=== PATIENT | female | born 1930 | race Caucasian/White ===

== ENCOUNTER 2018-08-01 21:26 | Observation (INO) ==
[2018-08-01 22:03] LABS: Basophils # 0.1 K/mm3 (0-0.2); Basophils % 0.5 % (0.1-2.0); Eosinophils # 0.2 K/mm3 (0.0-0.4); Eosinophils % 1.9 % (0.1-12.0); Hematocrit 39.1 % (37.0-47.0); Hemoglobin 13.1 g/dL (12.2-16.2); Lymphocytes # 1.5 K/mm3 (0.7-4.5); Lymphocytes % 14.9 % (10-50); Mean Corpuscular HGB Conc 33.5 g/dL (31.8-35.4); Mean Corpuscular Hemoglobin 30.1 pg (27.0-31.2); Mean Corpuscular Volume 89.8 fl (81-99); Mean Platelet Volume 6.3 fl (7.4-10.4); Monocytes # 0.5 K/mm3 (0.1-1.0); Monocytes % 4.5 % (1.7-9.3); Neutrophils # 7.8 K/mm3 (1.8-7.8); Neutrophils % 78.3 % (37.0-80.0); Platelet Count 273 K/mm3 (142-424); Red Blood Count 4.35 M/mm3 (4.20-5.40); Red Cell Distribution Width 14.7 % (11.5-17.5)
[2018-08-01 22:11] LABS: Microscopic, Urine URINE MICROSCOPIC (MICROSCOPIC)
[2018-08-01 22:18] LABS: Appearance,Urine CLEAR (Clear); Bilirubin,Urine Negative (Negative); Blood, Urine Negative (Negative); Color,Urine YELLOW (Yellow); Glucose,Urine (UA) Negative (Negative); Ketones,Urine Negative (Negative); Leukocyte Esterase,Urine Negative (Negative); Protein,Urine Negative (Negative); Specific Gravity, Urine <= 1.005 (1.005-1.030); Urobilinogen,Urine 0.2 EU/dl (0.2)
[2018-08-01 22:18] LABS: Alanine Aminotransferase 28 U/L (12-78); Albumin/Globulin Ratio 0.9 (1.1-1.8); Alkaline Phosphatase 88 U/L (46-116); Anion Gap 13.4 mEq/L (5-15); Aspartate Amino Transferase 16 U/L (15-37); Bilirubin,Total 0.7 mg/dL (0.2-1.0); Blood Urea Nitrogen 16 mg/dL (7-18); Calcium 8.6 mg/dL (8.5-10.1); Carbon Dioxide 23 mmol/L (21.0-32.0); Chloride 89 mmol/L (98-107); Globulin 3.3 gm/dl (1.3-3.2); Glucose 161 mg/dL (74-106); Potassium 4.4 mmoL/L (3.5-5.1); Sodium 121 mmol/L (136-145); Total Protein,Serum 6.3 gm/dL (6.4-8.2)
[2018-08-01 22:34] LABS: Bacteria,Urine Trace /lpf; Squamous Epithelial Cell,Urine Occasional #/hpf (0-5); WBC,Urine Occasional #/hpf (0-3)
--- NOTE | 2018-08-01 23:18 | Emergency Department Note ---
ED Disposition Clinical Impression: Acute delirium, Renal insufficiency, Hyponatremia A-fib Qualifiers: Atrial fibrillation type: chronic Qualified Code(s): I48.2 - Chronic atrial fibrillation Disposition: Admitted as Observation Condition on Discharge: Fair Instructions: DI for Altered Mental Status Referrals: Carlos Lopez MD [Primary Care Provider] - - Critical Care Critical Care Time: No Attestation: On 08/01/18, the high probability of a clinically significant, sudden or life threatening deterioration of the following system(s) required my full and direct attention, intervention and personal management. The time I documented below is in addition to time spent performing reported procedures but includes the following listed in this critical care notation. Medical Decision Making - Medical Records Medical records reviewed: Yes: I reviewed the patient's medical records. - Benny Inquiry Pt receiving controlled substance: No Vital Signs: 08/01/18 21:39 08/01/18 22:08 08/01/18 22:56 Temperature 98.9 F 99.7 F H Temperature Source Rectal Rectal Pulse Rate [Right Brachial] 87 84 Respiratory Rate 15 Blood Pressure [Right Arm] 97/57 L 100/53 L Blood Pressure Mean [Right Arm] 70 68 02 Sat by Pulse Oximetry 98 98 Oxygen Delivery Method Room Air 08/01/18 23:30 Temperature 98.9 F Temperature Source Oral Pulse Rate [Right Brachial] 101 H Respiratory Rate Blood Pressure [Right Arm] 169/67 H Blood Pressure Mean [Right Arm] 101 02 Sat by Pulse Oximetry 99 Oxygen Delivery Method - Lab Data Lab results reviewed: Yes: I reviewed the patient's lab results. Lab Results 08/01/18 21:48: WBC 10.0, RBC 4.35, Hgb 13.1, Hct 39.1, MCV 89.8, MCH 30.1, MCHC 33.5, RDW 14.7, Plt Count 273, MPV 6.3 L, Neut % (Auto) 78.3, Lymph % (Auto) 14.9, [place] % (Auto) 4.5, Eos % (Auto) 1.9, Baso % (Auto) 0.5, Neut # (Auto) 7.8, Lymph # (Auto) 1.5, [place] # (Auto) 0.5, Eos # (Auto) 0.2, Baso # (Auto) 0.1 08/01/18 21:48: Sodium 121 L, Potassium 4.4, Chloride 89 L, Carbon Dioxide 23, Anion Gap 13.4, BUN 16, Creatinine 1.19 H, Estimated Creat Clear 34, Estimated GFR 43 L, Est GFR ( Amer) 52 L, Glucose 161 H, Calcium 8.6, Total Bilirubin 0.7, AST 16, ALT 28, Alkaline Phosphatase 88, Troponin I < 0.02, Total Protein 6.3 L, Albumin 3.0 L, Globulin 3.3 H, Albumin/Globulin Ratio 0.9 L 08/01/18 21:48: Lactate 3.0 H 08/01/18 21:48: ESR 22 08/01/18 21:48: C-Reactive Protein 4.9 H 08/01/18 22:07: Urine Color Yellow, Urine Appearance Clear, Urine pH 7.0, Ur Specific [place] <= 1.005, Urine Protein Negative, Urine Glucose (UA) Negative, Urine Ketones Negative, Urine Blood Negative, Urine Nitrate Negative, Urine Bilirubin Negative, Urine Urobilinogen 0.2, Ur Leukocyte Esterase Negative, Urine WBC Occasional, Ur Squamous Epith Cells Occasional, Urine Bacteria Trace Result diagrams: 08/01/18 21:48 08/01/18 21:48 Orders (Tests/Meds): ED MEDICATIONS Generic Name Dose Route Start Last Admin Trade Name Freq PRN Reason Stop Dose Admin Sodium Chloride 1,000 mls @ 999 mls/hr 08/01/18 22:15 08/01/18 22:11 Sod Chlor 0.9% 1000ml Bag IV 08/01/18 23:15 999 mls/hr .Q1H1M GAURANG Administration Discontinued Medications Generic Name Dose Route Start Last Admin Trade Name Freq PRN Reason Stop Dose Admin Ketorolac Tromethamine 30 mg 08/01/18 23:40 08/01/18 23:52 Toradol 30mg/Ml Vial IV 08/01/18 23:41 30 mg ONCE ONE Administration ORDERS Category Date Time Status CT head/brain wo con Stat Cat Scan 08/01/18 21:49 Taken XR chest portable Stat Exams 08/01/18 21:49 Taken UDS [Drug Screen,Urine] Stat Lab 08/01/18 22:07 Received Blood Culture Stat Micro 08/01/18 21:48 Received ECG Request by /Nse Stat Y 08/01/18 21:49 Ordered - Radiology Data #1 Image(s): Chest Image Reviewed: Yes I reviewed the patient's radiology image Preliminary Findings: Abnormal (cm) - CT Data CT Scan: Head Time Received: 00:[address] Reviewed: Yes: I have viewed the radiologist's interpretation Preliminary Findings: Abnormal (see report ) - ECG Data Tracing #1 Arrhythmias present: afib Ischemic changes: non-specific ST-T wave changes ECG compared to prior tracings: there are no significant changes - Physician Consults Physician Consulted: roxane Reason -: Admission Altered Mental Status HPI - General Chief Complaint: Altered Mental Status Stated Complaint: ams Time Seen by Provider: 08/01/18 22:00 Mode of Arrival: Wheelchair Source of Information: Patient, Relative, Medical Record Limitations: No Limitations Description of Symptoms (Recalled from ER Triage Doc. by RN): Pt brought in by family for mental status changes lasting about a week. Reports severe weakness and emotional outburts. Salon Professional equal bilaterally, no drift on extremities, no facial droop noted. Pt does not follow normal conversation, and could not stand to get in the bed, had to be lifted by staff. - History of Present Illness HPI narrative: pt with progressive change in mental status over the last few days - no fever or rash and no recent sig trauma - no vomiting or diarrhea MD complaint: altered mental status Onset (ago): day(s) Timing confirmed by: family member Severity: moderate Consistency of symptoms: getting worse Context: unknown Associated symptoms: denies other symptoms - Related Data Home Medications Medication Instructions Recorded Confirmed acetaminophen ER 650 mg 650 mg PO Q12H PRN 07/07/18 08/01/18 tablet,extended release amlodipine 5 mg tablet 5 mg PO DAILY 07/07/18 08/01/18 aspirin 81 mg tablet,delayed 81 mg PO DAILY 07/07/18 08/01/18 release cetirizine 10 mg tablet 5 mg PO DAILY PRN 07/07/18 08/01/18 clopidogrel 75 mg tablet 75 mg PO DAILY 07/07/18 08/01/18 fluoxetine 20 mg capsule 20 mg PO DAILY 07/07/18 08/01/18 irbesartan 150 mg tablet 150 mg PO DAILY 07/07/18 08/01/18 nebivolol 5 mg tablet 5 mg PO DAILY 07/07/18 08/01/18 omeprazole 40 mg capsule,delayed 40 mg PO DAILY 07/07/18 08/01/18 release rivaroxaban 15 mg tablet 15 mg PO QPM 07/07/18 08/01/18 spironolactone 25 mg tablet 25 mg PO DAILY 07/07/18 08/01/18 Allergies Allergy/AdvReac Type Severity Reaction Status Date / Time diphenhydramine Allergy Unknown Verified 07/20/18 14:36 [From BENADRYL] morphine [MORPHINE] Allergy Unknown Verified 07/20/18 14:36 [facility] History - Hepatitis A Screen Drug use history?: No High risk sexual behaviors?: No History of sexually transmitted infection?: No Currently employed?: No Childcare worker?: No Do you have indoor plumbing?: Yes Do you have electricity?: Yes Attestation statement:: This patient has been screened for Hepatitis A risk factors. I have reviewed the patient's past medical history: Yes Medical History: Reports:: Atrial Fibrillation, Congestive Heart Failure, Coronary Artery Disease, Gastroesophageal Reflux Disease(GERD), Hyperlipidemia, Hypertension, Palpitations Denies:: Cancer, Diabetes Mellitus Type 1, Diabetes Mellitus Type 2, MRSA Other Medical History: Reports: Arthritis Comment: Heart attack 2009. Laterality Cases: Left: Total Hip Replacement, Right: Breast Biopsy Other Surgeries: Yes: Cardiac Catheterization, Cardiac Surgery, Hernia Repair Amputation: No - Social History Smoking Status: Never smoker Alcohol Intake: never Occupational Status: retired Housing: house - Psychiatric History Expresses thoughts of harming self/others: None Suicide Plan Description: No Plan Family Hx:: No significant family history ROS Obtained: Yes All systems reviewed & no additional complaints - Constitutional Constitutional: Denies fever(s), Reports poor appetite - Eyes Eyes: Denies eye discharge - ENT Ears, Nose, Mouth, and Throat: Denies headache(s), Denies nasal congestion - Cardiovascular Cardiovascular: Denies chest pain, Denies dyspnea - Respiratory Respiratory: No cough - Gastrointestinal Gastrointestingal: Denies: abdominal pain, vomiting - Genitourinary Female Genitourinary: Denies hematuria - Musculoskeletal Musculoskeletal: Denies joint swelling - Integumentary/Breasts Skin/Breast: Denies rash - Neurologic Neurologic: Reports as per HPI, Reports confusion, Denies seizure-like activity Physical Exam - General General appearance: in no apparent distress, other (confused ) - Head Head exam: normocephalic - Eye Eye exam: Present: PERRL, EOMI. Absent: scleral icterus - ENT ENT exam: Present: mucous membranes dry - Neck Neck exam: Present: trachea midline. Absent: meningismus - Respiratory Respiratory exam: Present: normal lung sounds bilaterally. Absent: respiratory distress - Cardiovascular Cardiovascular exam: Present: regular rate, systolic murmur, +S4 - Abdominal Exam Abdominal exam: Present: soft - Extremities Exam Extremities exam: Present: other (moves all ext ) - Back Exam Back exam: Present: normal inspection - Neurological Exam Neurological exam: Present: CN II-XII intact, other (no posturing and no focal changes ) - Skin Skin exam: Absent: rash
[2018-08-02 00:10] LABS: Amphetamine/Metha Screen,Urine Negative ng/mL (<1000); Barbiturates Screen,Urine Negative ng/mL (<200); Benzodiazepines Screen,Urine Negative ng/mL (<200); Cannabinoid Screen,Urine Negative ng/mL (<50); Cocaine Screen,Urine Negative ng/mL (<300); Methadone Screen,Urine Negative ng/mL (<300); Opiate Screen,Urine Negative ng/mL (<300); Phencyclidine Screen,Urine Negative ng/mL (<25)
[2018-08-02 06:39] LABS: Basophils % 0.3 % (0.1-2.0); Eosinophils # 0.2 K/mm3 (0.0-0.4); Eosinophils % 2.1 % (0.1-12.0); Hematocrit 40.8 % (37.0-47.0); Hemoglobin 13.7 g/dL (12.2-16.2); Lymphocytes # 1.4 K/mm3 (0.7-4.5); Lymphocytes % 12.8 % (10-50); Mean Corpuscular HGB Conc 33.6 g/dL (31.8-35.4); Mean Corpuscular Volume 89.1 fl (81-99); Mean Platelet Volume 6.1 fl (7.4-10.4); Monocytes # 0.6 K/mm3 (0.1-1.0); Monocytes % 5.7 % (1.7-9.3); Neutrophils # 8.3 K/mm3 (1.8-7.8); Platelet Count 256 K/mm3 (142-424); Red Blood Count 4.58 M/mm3 (4.20-5.40); Red Cell Distribution Width 14.9 % (11.5-17.5); White Blood Count 10.5 K/mm3 (4.8-10.8)
[2018-08-02 06:50] LABS: Anion Gap 12.5 mEq/L (5-15); Calcium 8.7 mg/dL (8.5-10.1); Potassium 4.5 mmoL/L (3.5-5.1)
--- NOTE | 2018-08-02 07:26 | Pharmacy Consult Notes ---
[facility] VTE Monitoring - Patient Demographics Admission date: 08/02/18 Report Date: 08/02/18 Time: 07:26 Allergies/Adverse Reactions: Patient Allergies diphenhydramine [From BENADRYL] Allergy (Unknown, Verified 07/20/18 14:36) morphine [MORPHINE] Allergy (Unknown, Verified 07/20/18 14:36) Height: 1.52 m Weight: 61.518 kg Patient Problems: Current Active Problems (Updated 08/02/18 @ 00:08 by Rod Gomez MD) Renal insufficiency (Acute) Acute delirium (Acute) A-fib (Acute) Hyponatremia (Acute) - VTE Risk Labs: VTE Related Lab Results Hgb 13.7 g/dL (12.2-16.2) 08/02/18 06:11 Hct 40.8 % (37.0-47.0) 08/02/18 06:11 Plt Count 256 K/mm3 (142-424) 08/02/18 06:11 BUN 13 mg/dL (7-18) 08/02/18 06:11 Creatinine 0.98 mg/dL (0.55-1.02) 08/02/18 06:11 Estimated Creat Clear 40 mL/min (50-200) 08/02/18 06:11 Was VTE Risk Assessment Performed: Yes VTE Score: 4 VTE Risk Level: Low Risk Clinical Trial Participant: No - Prophylaxis VTE Prophylaxis Ordered?: Yes Types of VTE Prophylaxis: TEDS Knee High
--- NOTE | 2018-08-02 10:02 | History & Physical Report ---
*Admission Date: 08/02/18 <Neha Rizvi - 08/02/18 10:02> *Chief complaint: Altered mental status <Neha Rizvi - 08/02/18 10:02> *History of present illness: Ms Taveras is an 87-year-old female with a history of coronary artery disease, atrial fibrillation, hypertension, hyperlipidemia, depression, GERD, COPD, polymyalgia rheumatica, weakness, impaired mobility and ADLs, neuromuscular disease, and confusion, who was brought to [facility] emergency room by family for evaluation. Family describes worsening mental status over about the last week with severe weakness and emotional outburst. Patient is unable to give any history. Information obtained from nursing records. Family has not noted a fever or any significant trauma, vomiting, or diarrhea. With evaluation in the emergency room patient was found to be very confused. Filer Repairer were equal bilaterally with no drift and no facial droop noted. Patient did not follow normal conversation. She could not stand to get out of bed. Patient was found to be hyponatremic. Chest x-ray showed cardiomegaly. Urinalysis was negative. She was admitted for further evaluation and treatment for her acute delirium. At time of this exam patient is making repetitive statements and counts continuously. She does allow exam. Nursing notes indicate some agitation and attempts at hitting. Nursing at bedside throughout the night. I did visit with the patient later. Daughter was present. Patient was more calm and following our conversation. According to the nurse she was able to eat breakfast and swallowed without difficulty. Daughter states that she is to have a follow-up with an orthopedic surgeon in [facility] for possible aspiration of her left hip and further studies. She has had a CT already of the hip. Patient apparently has increasing pain of the left hip area with refusal to walk or stand at times. <Neha Rizvi - 08/02/18 13:38> [facility] History Medical History: Reports:: Atherosclerotic Heart Disease, Atrial Fibrillation, Congestive Heart Failure, Coronary Artery Disease, Gastroesophageal Reflux Disease(GERD), Hiatal Hernia, Hyperlipidemia, Hypertension, Palpitations Denies:: Cancer, Diabetes Mellitus Type 1, Diabetes Mellitus Type 2, MRSA <Neha Rizvi 08/02/18 10:28> *Have you ever received a pneumonia vaccine?: Yes <Katherine Rizvihy - 05/07/19 10:02> *Have you received a flu vaccine this season?: No <Neha Rizvi 08/02/18 10:02> Other Medical History: Reports: Arthritis, Cataracts (removed in 2016) <Neha Rizvi 08/02/18 10:02> Laterality Cases: Left: Total Hip Replacement, Right: Breast Biopsy <Neha Rizvi 08/02/18 10:28> Other Surgeries: Yes: Cardiac Catheterization, Cardiac Surgery, Coronary Stent, Hernia Repair <Neha Rizvi 08/02/18 10:28> Amputation: No <Neha Rizvi 08/02/18 10:02> - *Social History Educational Level: Completed GED/General Educational Development <Neha Rizvi 08/02/18 10:02> Smoking Status: Never smoker <Neha Rizvi 08/02/18 10:02> Alcohol Intake: never <Neha Rizvi 08/02/18 10:02> *Occupational Status:: retired <Neha Rizvi 08/02/18 10:02> Housing: house <Neha Rizvi 08/02/18 10:02> Household Members: children <Neha Rizvi 08/02/18 10:02> *Travel in the last 8 weeks: None <Neha Rizvi 08/02/18 10:02> - Psychiatric History Expresses thoughts of harming self/others: None <Neha Rizvi 08/02/18 10:02> Suicide Plan Description: No Plan <Neha Rizvi 08/02/18 10:02> Family Hx:: Coronary Artery Disease, Diabetes <Neha Rizvi 08/02/18 10:02> Review of Systems - Constitutional Denies fever(s) <Neha Rizvi 08/02/18 10:28> - *Cardiovascular Denies chest pain <Neha Rizvi 08/02/18 10:28> - *Respiratory Denies shortness of breath <Neha Rizvi 08/02/18 10:28> - *Gastrointestinal Denies change in stools, Denies nausea, Denies vomiting <Neha Rizvi 08/02/18 10:28> - *Musculoskeletal Reports muscle weakness (Progressive) <Neha Rizvi 08/02/18 10:28> - *Neurologic Reports behavioral changes, Reports confusion, Reports frequent falls, Denies headache(s), Denies seizure-like activity <Neha Rizvi - 08/02/18 10:28> Meds Home Medications Medication Instructions Recorded Confirmed Type acetaminophen ER 650 mg 650 mg PO Q12H PRN 07/07/18 08/02/18 History tablet,extended release amlodipine 5 mg tablet 5 mg PO DAILY 07/07/18 08/02/18 History aspirin 81 mg tablet,delayed 81 mg PO DAILY 07/07/18 08/02/18 History release clopidogrel 75 mg tablet 75 mg PO DAILY 07/07/18 08/02/18 History fluoxetine 20 mg capsule 20 mg PO DAILY 07/07/18 08/02/18 History irbesartan 150 mg tablet 150 mg PO DAILY 07/07/18 08/02/18 History nebivolol 5 mg tablet 5 mg PO DAILY 07/07/18 08/02/18 History omeprazole 40 mg capsule,delayed 40 mg PO DAILY 07/07/18 08/02/18 History release rivaroxaban 15 mg tablet 15 mg PO QPM 07/07/18 08/02/18 History Levocetirizine Dihydrochloride 5 mg PO DAILYP PRN 08/02/18 08/02/18 History [Xyzal] Spironolactone 25 mg PO BID 08/02/18 08/02/18 History predniSONE [Prednisone 20mg 20 mg PO DAILY 08/02/18 08/02/18 History Tab] <Carlos Lopez - 08/02/18 13:42> Allergies Allergy/AdvReac Type Severity Reaction Status Date / Time diphenhydramine Allergy Unknown Verified 07/20/18 14:36 [From BENADRYL] morphine [MORPHINE] Allergy Unknown Verified 07/20/18 14:36 <Carlos Lopez - 08/02/18 13:42> Exam Vital signs and Labs for Last 24 Hours: Temp Pulse Resp BP Pulse Ox 98.2 F 82 20 154/78 H 95 08/02/18 08:00 08/02/18 08:00 08/02/18 08:00 08/02/18 08:00 08/02/18 08:00 Laboratory Results - last 24 hr 08/01/18 21:48: WBC 10.0, RBC 4.35, Hgb 13.1, Hct 39.1, MCV 89.8, MCH 30.1, MCHC 33.5, RDW 14.7, Plt Count 273, MPV 6.3 L, Neut % (Auto) 78.3, Lymph % (Auto) 14.9, [place] % (Auto) 4.5, Eos % (Auto) 1.9, Baso % (Auto) 0.5, Neut # (Auto) 7.8, Lymph # (Auto) 1.5, [place] # (Auto) 0.5, Eos # (Auto) 0.2, Baso # (Auto) 0.1 08/01/18 21:48: Sodium 121 L, Potassium 4.4, Chloride 89 L, Carbon Dioxide 23, Anion Gap 13.4, BUN 16, Creatinine 1.19 H, Estimated Creat Clear 34, Estimated GFR 43 L, Est GFR ( Amer) 52 L, Glucose 161 H, Calcium 8.6, Total Bilirubin 0.7, AST 16, ALT 28, Alkaline Phosphatase 88, Troponin I < 0.02, Total Protein 6.3 L, Albumin 3.0 L, Globulin 3.3 H, Albumin/Globulin Ratio 0.9 L 08/01/18 21:48: Lactate 3.0 H 08/01/18 21:48: ESR 22 08/01/18 21:48: C-Reactive Protein 4.9 H 08/01/18 22:07: Urine Color Yellow, Urine Appearance Clear, Urine pH 7.0, Ur Specific L[place] <= 1.005, Urine Protein Negative, Urine Glucose (UA) Negative, Urine Ketones Negative, Urine Blood Negative, Urine Nitrate Negative, Urine Bilirubin Negative, Urine Urobilinogen 0.2, Ur Leukocyte Esterase Negative, Urine WBC Occasional, Ur Squamous Epith Cells Occasional, Urine Bacteria Trace 08/01/18 22:07: Urine Opiates Screen Negative, Urine Methadone Screen Negative, Ur Barbituates Screen Negative, Ur Phencyclidine Scrn Negative, Ur Amphetamines Screen Negative, U Benzodiazepines Scrn Negative, Urine Cocaine Screen Negative, U Marijuana (THC) Screen Negative 08/02/18 01:30: Lactate 1.4 08/02/18 03:10: Troponin I 0.02 08/02/18 06:11: WBC 10.5, RBC 4.58, Hgb 13.7, Hct 40.8, MCV 89.1, MCH 30.0, MCHC 33.6, RDW 14.9, Plt Count 256, MPV 6.1 L, Neut % (Auto) 79.0, Lymph % (Auto) 12.8, [place] % (Auto) 5.7, Eos % (Auto) 2.1, Baso % (Auto) 0.3, Neut # (Auto) 8.3 H, Lymph # (Auto) 1.4, Stone[place] # (Auto) 0.6, Eos # (Auto) 0.2, Baso # (Auto) 0.0 08/02/18 06:11: Sodium 127 L, Potassium 4.5, Chloride 95 L, Carbon Dioxide 24, Anion Gap 12.5, BUN 13, Creatinine 0.98, Estimated Creat Clear 40, Estimated GFR 54 L, Est GFR ( Amer) 65 D, Glucose 103 D, Calcium 8.7 08/02/18 06:11: Magnesium 1.6, Troponin I < 0.02 <Barbra Lopezian - 08/02/18 13:42> Temp Pulse Resp BP Pulse Ox 97.9 F 80 18 144/79 H 98 08/02/18 04:30 08/02/18 04:30 08/02/18 04:30 08/02/18 04:30 08/02/18 04:30 Laboratory Results - last 24 hr 08/01/18 21:48: WBC 10.0, RBC 4.35, Hgb 13.1, Hct 39.1, MCV 89.8, MCH 30.1, MCHC 33.5, RDW 14.7, Plt Count 273, MPV 6.3 L, Neut % (Auto) 78.3, Lymph % (Auto) 14.9, [place] % (Auto) 4.5, Eos % (Auto) 1.9, Baso % (Auto) 0.5, Neut # (Auto) 7.8, Lymph # (Auto) 1.5, [place] # (Auto) 0.5, Eos # (Auto) 0.2, Baso # (Auto) 0.1 08/01/18 21:48: Sodium 121 L, Potassium 4.4, Chloride 89 L, Carbon Dioxide 23, Anion Gap 13.4, BUN 16, Creatinine 1.19 H, Estimated Creat Clear 34, Estimated GFR 43 L, Est GFR ( Amer) 52 L, Glucose 161 H, Calcium 8.6, Total Bilirubin 0.7, AST 16, ALT 28, Alkaline Phosphatase 88, Troponin I < 0.02, Total Protein 6.3 L, Albumin 3.0 L, Globulin 3.3 H, Albumin/Globulin Ratio 0.9 L 08/01/18 21:48: Lactate 3.0 H 08/01/18 21:48: ESR 22 08/01/18 21:48: C-Reactive Protein 4.9 H 08/01/18 22:07: Urine Color Yellow, Urine Appearance Clear, Urine pH 7.0, Ur Specific [place] <= 1.005, Urine Protein Negative, Urine Glucose (UA) Negative, Urine Ketones Negative, Urine Blood Negative, Urine Nitrate Negative, Urine Bilirubin Negative, Urine Urobilinogen 0.2, Ur Leukocyte Esterase Negative, Urine WBC Occasional, Ur Squamous Epith Cells Occasional, Urine Bacteria Trace 08/01/18 22:07: Urine Opiates Screen Negative, Urine Methadone Screen Negative, Ur Barbituates Screen Negative, Ur Phencyclidine Scrn Negative, Ur Amphetamines Screen Negative, U Benzodiazepines Scrn Negative, Urine Cocaine Screen Negative, U Marijuana (THC) Screen Negative 08/02/18 01:30: Lactate 1.4 08/02/18 03:10: Troponin I 0.02 08/02/18 06:11: WBC 10.5, RBC 4.58, Hgb 13.7, Hct 40.8, MCV 89.1, MCH 30.0, MCHC 33.6, RDW 14.9, Plt Count 256, MPV 6.1 L, Neut % (Auto) 79.0, Lymph % (Auto) 12 .8, [place] % (Auto) 5.7, Eos % (Auto) 2.1, Baso % (Auto) 0.3, Neut # (Auto) 8.3 H, Lymph # (Auto) 1.4, [place] # (Auto) 0.6, Eos # (Auto) 0.2, Baso # (Auto) 0.0 08/02/18 06:11: Sodium 127 L, Potassium 4.5, Chloride 95 L, Carbon Dioxide 24, Anion Gap 12.5, BUN 13, Creatinine 0.98, Estimated Creat Clear 40, Estimated GFR 54 L, Est GFR ( Amer) 65 D, Glucose 103 D, Calcium 8.7 08/02/18 06:11: Magnesium 1.6, Troponin I < 0.02 <Neha Rizvi 08/02/18 10:02> I & O for Last 24 hours: Intake & Output 07/30/18 07/31/18 08/01/18 08/02/18 23:59 23:59 23:59 23:59 Intake Total 307 / 307 Balance 307 / 307 Weight 135 lb 9.985 oz 135 lb 9.985 oz <Carlos Lopez - 08/02/18 13:42> Intake & Output 07/30/18 07/31/18 08/01/18 08/02/18 11:59 11:59 11:59 11:59 Intake Total 307 / 307 Balance 307 / 307 Weight 135 lb 9.985 oz <Neha Rizvi - 08/02/18 10:02> Radiology Reports for the Last 24 Hours: 08/01/2018 chest x-ray IMPRESSION: Cardiomegaly 08/01/[address] IMPRESSION: 1. No acute intracranial findings. 2. Atrophy with chronic ischemic gliotic change <Neha Rizvi 08/02/18 10:28> - Constitutional no acute distress <Neha Rizvi 08/02/18 10:28> Comments: Moves around in the bed almost continuously. Pointing and counting continuously. Will answer questions occasionally with yes or no. Does cooperate with turning and does obey some commands. <Neha Rizvi 08/02/18 10:28> - *Routine HEENT Exam Head: Present: normocephalic, atraumatic <Neha Rizvi 08/02/18 10:28> Eye: Present: PERRL <Neha Rizvi 08/02/18 10:28> ENT: Present: mucous membranes moist, oropharynx clear <Neha Rizvi 08/02/18 10:28> - *Routine Neck Exam Present: supple. Absent: carotid bruit, lymphadenopathy, thyromegaly <Neha Rizvi 08/02/18 10:28> - *Routine Respiratory Exam Present: CTA bilaterally (Anteriorly and posteriorly) <Neha Rizvi 08/02 10:28> - *Routine Cardiovascular Exam Present: RRR (Monitor showing sinus rhythm in the 80s.) <Neha Rizvi - 08/02/18 10:28> - *Routine Abdominal Exam Present: soft, normoactive bowel sounds. Absent: tenderness <Neha Rizvi - 08/02/18 10:28> - *Routine Extremities Exam Present: pulses intact. Absent: edema, calf tenderness <Neha Rizvi 08/02/18 10:28> - *Routine Neurological Exam Present: alert, altered mental status, moving all extremities <Neha Rizvi 08/02/18 10:28> Disoriented and restless. Sometimes a little agitated. <Neha Rizvi 08/02/18 10:28> Assessment and Plan (1) History of atrial fibrillation Current visit: Yes Status: Acute Category: Medical Code(s): Z86.79 - Personal history of other diseases of the circulatory system (2) Acute delirium Current visit: Yes Status: Acute Category: Medical Code(s): R41.0 - Disorientation, unspecified (3) Hyponatremia Current visit: Yes Status: Acute Category: Medical Code(s): E87.1 - Hypo- osmolality and hyponatremia (4) HTN (hypertension) Current visit: No Status: Chronic Qualifiers: Hypertension type: unspecified Qualified Code(s): I10 - Essential (primary) hypertension Category: Medical Code(s): I10 - Essential (primary) hypertension (5) Multiple contusions Current visit: No Status: Acute Category: Medical Code(s): T07.XXXA - Unspecified multiple injuries, initial encounter (6) Polymyalgia rheumatica Current visit: Yes Status: Chronic Category: Medical Code(s): M35.3 - Polymyalgia rheumatica (7) Neuromuscular disease Current visit: Yes Status: Chronic Category: Medical Code(s): G70.9 - Myoneural disorder, unspecified (8) Left hip pain Current visit: Yes Status: Acute Category: Medical Code(s): M25.552 - Pain in left hip (9) Renal insufficiency Current visit: Yes Status: Acute Category: Medical Code(s): N28.9 - Disorder of kidney and ureter, unspecified <Carlos Lopez - 08/02/18 13:42> (1) History of atrial fibrillation Current visit: Yes Status: Acute Category: Medical Code(s): Z86.79 - Personal history of other diseases of the circulatory system (2) Acute delirium Current visit: Yes Status: Acute Category: Medical Code(s): R41.0 - Disorientation, unspecified (3) Hyponatremia Current visit: Yes Status: Acute Category: Medical Code(s): E87.1 - Hypo- osmolality and hyponatremia (4) HTN (hypertension) Current visit: No Status: Chronic Qualifiers: Hypertension type: unspecified Qualified Code(s): I10 - Essential (primary) hypertension Category: Medical Code(s): I10 - Essential (primary) hypertension (5) Multiple contusions Current visit: No Status: Acute Category: Medical Code(s): T07.XXXA - Unspecified multiple injuries, initial encounter (6) Polymyalgia rheumatica Current visit: Yes Status: Chronic Category: Medical Code(s): M35.3 - Tanner ymyalgia rheumatica (7) Neuromuscular disease Current visit: Yes Status: Chronic Category: Medical Code(s): G70.9 - Myoneural disorder, unspecified (8) Left hip pain Current visit: Yes Status: Acute Category: Medical Code(s): M25.552 - Pain in left hip <Neha Rizvi - 08/02/18 13:29> - Assessment and plan all Dx Assessment and Plan for all problems:: Saw patient, agree with above note. <Carlos Lopez - 08/02/18 13:42> Receiving normal saline IV at 75 NR. Will monitor labs. Some of home meds have been restarted. <Neha Rizvi - 08/02/18 13:38>
[2018-08-03 06:51] LABS: Anion Gap 11.1 mEq/L (5-15); Calcium 8.6 mg/dL (8.5-10.1); Potassium 4.1 mmoL/L (3.5-5.1)
--- NOTE | 2018-08-03 08:06 | Progress Note ---
<Neha Rizvi - Last Filed: 08/03/18 08:03> Internal Medicine - PN: Subj *Date: 08/03/18 *Time: 08:03 Interval history: Patient slept very little last night. She is yelling out periodically this a.m. She does answer questions and assist with exam she feels the Resurrection is going to happen and unable to redirect her. She denies pain and shortness of breath. She states she is not hungry this morning. The nurses were able to get her up and weight-bear this morning and she stood without difficulty. Exam Vital signs and Labs for Last 24 Hours: Temp Pulse Resp BP Pulse Ox 98.5 F 85 20 150/65 H 95 08/03/18 04:00 08/03/18 04:00 08/03/18 04:00 08/03/18 04:00 08/03/18 04:00 Laboratory Results - last 24 hr 08/03/18 06:04: Sodium 128 L, Potassium 4.1, Chloride 97 L, Carbon Dioxide 24, Anion Gap 11.1, BUN 14, Creatinine 0.85, Estimated Creat Clear 40, Estimated GFR 64, Est GFR ( Amer) 77, Glucose 100, Calcium 8.6 I & O for Last 24 hours: Intake & Output 07/31/18 08/01/18 08/02/18 08/03/18 11:59 11:59 11:59 11:59 Intake Total 307 / 307 825 / 825 Output Total 1875 / 1875 Balance 307 / 307 -1050 / -1050 Weight 135 lb 9.985 oz 125 lb - Constitutional no acute distress - *Routine Respiratory Exam Present: CTA bilaterally (Anteriorly and posteriorly) - *Routine Cardiovascular Exam Present: RRR - *Routine Abdominal Exam Present: soft, normoactive bowel sounds. Absent: tenderness - *Routine Extremities Exam Present: pulses intact. Absent: edema, tenderness - *Routine Neurological Exam Present: altered mental status, moving all extremities - Routine Psychiatric Exam Present: agitated. Absent: normal thought process Comments: Patient is manic at times. Question that she is hearing and seeing things. Assessment and Plan (1) History of atrial fibrillation Current visit: Yes Status: Acute Category: Medical Code(s): Z86.79 - Personal history of other diseases of the circulatory system (2) Acute delirium Current visit: Yes Status: Acute Category: Medical Code(s): R41.0 - Disor ientation, unspecified (3) Hyponatremia Current visit: Yes Status: Acute Category: Medical Code(s): E87.1 - Hypo- osmolality and hyponatremia (4) HTN (hypertension) Current visit: No Status: Chronic Qualifiers: Hypertension type: unspecified Qualified Code(s): I10 - Essential (primary) hypertension Category: Medical Code(s): I10 - Essential (primary) hypertension (5) Multiple contusions Current visit: No Status: Acute Category: Medical Code(s): T07.XXXA - Unspecified multiple injuries, initial encounter (6) Polymyalgia rheumatica Current visit: Yes Status: Chronic Category: Medical Code(s): M35.3 - Polymyalgia rheumatica (7) Neuromuscular disease Current visit: Yes Status: Chronic Category: Medical Code(s): G70.9 - M yoneural disorder, unspecified (8) Left hip pain Current visit: Yes Status: Acute Category: Medical Code(s): M25.552 - Pain in left hip (9) Renal insufficiency Current visit: Yes Status: Acute Category: Medical Code(s): N28.9 - Disorder of kidney and ureter, unspecified - Assessment and plan all Dx Assessment and Plan for all problems:: We will continue with normal saline IV. Will discuss further with Dr. Lopez <Carlos Lopez - Last Filed: 08/03/18 09:11> Internal Medicine - PN: Subj *Date: 08/03/18 *Time: 09:10 Exam Vital signs and Labs for Last 24 Hours: Temp Pulse Resp BP Pulse Ox 98.5 F 80 22 128/68 97 08/03/18 04:00 08/03/18 08:00 08/03/18 08:00 08/03/18 08:00 08/03/18 08:00 Laboratory Results - last 24 hr 08/03/18 06:04: Sodium 128 L, Potassium 4.1, Chloride 97 L, Carbon Dioxide 24, Anion Gap 11.1, BUN 14, Creatinine 0.85, Estimated Creat Clear 40, Estimated GFR 64, Est GFR ( Amer) 77, Glucose 100, Calcium 8.6 I & O for Last 24 hours: Intake & Output 05/05/08/01/18 08/02/18 08/03/18 23:59 23:59 23:59 23:59 Intake Total 1132 / 1132 120 / 120 Output Total 775 / 775 1100 / 1100 Balance 357 / 357 -980 / -980 Weight 135 lb 9.985 oz 135 lb 9.985 oz 125 lb Assessment and Plan (1) History of atrial fibrillation Current visit: Yes Status: Acute Category: Medical Code(s): Z86.79 - Personal history of other diseases of the circulatory system (2) Acute delirium Current visit: Yes Status: Acute Category: Medical Code(s): R41.0 - Disorientation, unspecified (3) Hyponatremia Current visit: Yes Status: Acute Category: Medical Code(s): E87.1 - Hypo- osmolality and hyponatremia (4) HTN (hypertension) Current visit: No Status: Chronic Qualifiers: Hypertension type: unspecified Qualified Code(s): I10 - Essential (primary) hypertension Category: Medical Code(s): I10 - Essential (primary) hypertension (5) Multiple contusions Current visit: No Status: Acute Category: Medical Code(s): T07.XXXA - Unspecified multiple injuries, initial encounter (6) Polymyalgia rheumatica Current visit: Yes Status: Chronic Category: Medical Code(s): M35.3 - Polymyalgia rheumatica (7) Neuromuscular disease Current visit: Yes Status: Chronic Category: Medical Code(s): G70.9 - Myoneural disorder, unspecified (8) Left hip pain Current visit: Yes Status: Acute Category: Medical Code(s): M25.552 - Pain in left hip (9) Renal insufficiency Current visit: Yes Status: Acute Category: Medical Code(s): N28.9 - Disorder of kidney and ureter, unspecified - Assessment and plan all Dx Assessment and Plan for all problems:: Saw patient. She is more agitated this morning, states she has chest pain. Will check EKG and cardiac enzymes, will give a small dose of Ativan now.
[2018-08-03 09:51] LABS: Basophils % 0.4 % (0.1-2.0); Eosinophils # 0.2 K/mm3 (0.0-0.4); Hematocrit 39.5 % (37.0-47.0); Hemoglobin 13.1 g/dL (12.2-16.2); Lymphocytes % 10.2 % (10-50); Mean Corpuscular HGB Conc 33.2 g/dL (31.8-35.4); Mean Corpuscular Volume 90.4 fl (81-99); Mean Platelet Volume 6.6 fl (7.4-10.4); Monocytes # 0.4 K/mm3 (0.1-1.0); Monocytes % 3.9 % (1.7-9.3); Neutrophils % 83.5 % (37.0-80.0); Platelet Count 256 K/mm3 (142-424); Red Blood Count 4.37 M/mm3 (4.20-5.40); Red Cell Distribution Width 14.7 % (11.5-17.5); White Blood Count 9.6 K/mm3 (4.8-10.8)
[2018-08-03 10:12] LABS: Creatine Kinase 37 U/L (26-192)
[2018-08-04 07:15] LABS: Basophils % 0.3 % (0.1-2.0); Eosinophils # 0.2 K/mm3 (0.0-0.4); Eosinophils % 2.3 % (0.1-12.0); Hematocrit 37.6 % (37.0-47.0); Hemoglobin 12.4 g/dL (12.2-16.2); Lymphocytes # 1.3 K/mm3 (0.7-4.5); Mean Corpuscular Hemoglobin 30.3 pg (27.0-31.2); Mean Corpuscular Volume 91.8 fl (81-99); Mean Platelet Volume 6.1 fl (7.4-10.4); Monocytes # 0.5 K/mm3 (0.1-1.0); Monocytes % 5.3 % (1.7-9.3); Neutrophils # 6.9 K/mm3 (1.8-7.8); Neutrophils % 77.2 % (37.0-80.0); Platelet Count 212 K/mm3 (142-424); Red Blood Count 4.09 M/mm3 (4.20-5.40); Red Cell Distribution Width 14.9 % (11.5-17.5); White Blood Count 8.9 K/mm3 (4.8-10.8)
[2018-08-04 07:27] LABS: Anion Gap 12.8 mEq/L (5-15); Calcium 8.4 mg/dL (8.5-10.1); Potassium 3.8 mmoL/L (3.5-5.1)
--- NOTE | 2018-08-04 08:32 | Progress Note ---
<Darline Campbell - Last Filed: 08/04/18 08:30> Internal Medicine - PN: Subj *Date: 08/04/18 *Time: 08:30 Interval history: Patient's nurse states she slept throughout the night. Apparently she did run a fever during the night. This morning she is starting to get agitated again and more confused. Her daughter states she would like her to be transferred to [place] under the care of Dr. Benjamin of neurology. The patient's only complaint this morning is some hip pain. Exam Vital signs and Labs for Last 24 Hours: Temp Pulse Resp BP Pulse Ox 98.2 F 78 20 151/76 H 98 08/04/18 04:00 08/04/18 04:00 08/04/18 04:00 08/04/18 04:00 08/04/18 04:00 Laboratory Results - last 24 hr 08/03/18 06:04: Total Creatine Kinase 37, CK-MB (CK-2) 1.5, CK-MB (CK-2) Rel Index 4.1 H, Troponin I < 0.02 08/03/18 06:04: WBC 9.6, RBC 4.37, Hgb 13.1, Hct 39.5, MCV 90.4, MCH 30.0, MCHC 33.2, RDW 14.7, Plt Count 256, MPV 6.6 L, Neut % (Auto) 83.5 H, Lymph % (Auto) 10.2, [place] % (Auto) 3.9, Eos % (Auto) 2.0, Baso % (Auto) 0.4, Neut # (Auto) 8.0 H, Lymph # (Auto) 1.0, [place] # (Auto) 0.4, Eos # (Auto) 0.2, Baso # (Auto) 0.0 08/04/18 06:43: WBC 8.9, RBC 4.09 L, Hgb 12.4, Hct 37.6, MCV 91.8, MCH 30.3, MCHC 33.0, RDW 14.9, Plt Count 212, MPV 6.1 L, Neut % (Auto) 77.2, Lymph % (Auto) 15.0, [place] % (Auto) 5.3, Eos % (Auto) 2.3, Baso % (Auto) 0.3, Neut # (Auto) 6.9, Lymph # (Auto) 1.3, [place] # (Auto) 0.5, Eos # (Auto) 0.2, Baso # (Auto) 0.0 08/04/18 06:43: Sodium 128 L, Potassium 3.8, Chloride 95 L, Carbon Dioxide 24, Anion Gap 12.8, BUN 12, Creatinine 0.79, Estimated Creat Clear 37, Estimated GFR 69, Est GFR ( Amer) 84, Glucose 91, Calcium 8.4 L I & O for Last 24 hours: Intake & Output 08/01/18 08/02/18 08/03/18 08/04/18 11:59 11:59 11:59 11:59 Intake Total 307 / 307 945 / 945 978 / 978 Output Total 1875 / 1875 Balance 307 / 307 -930 / -930 978 / 978 Weight 135 lb 9.985 oz 125 lb 130 lb Microbiology Reports for the Last 24 Hours: Microbiology 08/01/18 21:48 Blood Blood Culture - Preliminary NO GROWTH AFTER 48 HOURS 08/01/18 21:48 Blood Blood Culture - Preliminary NO GROWTH AFTER 48 HOURS - Constitutional agitated - *Routine Respiratory Exam Present: CTA bilaterally - *Routine Cardiovascular Exam Present: RRR - *Routine Abdominal Exam Present: soft, normoactive bowel sounds. Absent: tenderness - *Routine Extremities Exam Absent: cyanosis, clubbing, edema Assessment and Plan (1) History of atrial fibrillation Current visit: Yes Status: Acute Category: Medical Code(s): Z86.79 - Personal history of other diseases of the circulatory system (2) Acute delirium Current visit: Yes Status: Acute Category: Medical Code(s): R41.0 - Disorientation, unspecified (3) Hyponatremia Current visit: Yes Status: Acute Category: Medical Code(s): E87.1 - Hypo- osmolality and hyponatremia (4) HTN (hypertension) Current visit: No Status: Chronic Qualifiers: Hypertension type: unspecified Qualified Code(s): I10 - Essential (primary) hypertension Category: Medical Code(s): I10 - Essential (primary) hypertension (5) Multiple contusions Current visit: No Status: Acute Category: Medical Code(s): T07.XXXA - Unspecified multiple injuries, initial encounter (6) Polymyalgia rheumatica Current visit: Yes Status: Chronic Category: Medical Code(s): M35.3 - Polymyalgia rheumatica (7) Neuromuscular disease Current visit: Yes Status: Chronic Category: Medical Code(s): G70.9 - Myoneural disorder, unspecified (8) Left hip pain Current visit: Yes Status: Acute Category: Medical Code(s): M25.552 - Pain in left hip (9) Renal insufficiency Current visit: Yes Status: Acute Category: Medical Code(s): N28.9 - Disorder of kidney and ureter, unspecified - Assessment and plan all Dx Assessment and Plan for all problems:: Sodium is still low. Patient is still confused and agitated at times. Will discuss possible transfer with Dr. Lopez. <Carlos Lopez - Last Filed: 08/04/18 09:06> Internal Medicine - PN: Subj *Date: 08/04/18 *Time: 09:04 Exam Vital signs and Labs for Last 24 Hours: Temp Pulse Resp BP Pulse Ox 97.5 F L 85 18 151/75 H 99 08/04/18 08:00 08/04/18 08:00 08/04/18 08:00 08/04/18 08:00 08/04/18 08:00 Laboratory Results - last 24 hr 08/03/18 06:04: Total Creatine Kinase 37, CK-MB (CK-2) 1.5, CK-MB (CK-2) Rel Index 4.1 H, Troponin I < 0.02 08/03/18 06:04: WBC 9.6, RBC 4.37, Hgb 13.1, Hct 39.5, MCV 90.4, MCH 30.0, MCHC 33.2, RDW 14.7, Plt Count 256, MPV 6.6 L, Neut % (Auto) 83.5 H, Lymph % (Auto) 10.2, [place] % (Auto) 3.9, Eos % (Auto) 2.0, Baso % (Auto) 0.4, Neut # (Auto) 8.0 H, Lymph # (Auto) 1.0, [place] # (Auto) 0.4, Eos # (Auto) 0.2, Baso # (Auto) 0.0 08/04/18 06:43: WBC 8.9, RBC 4.09 L, Hgb 12.4, Hct 37.6, MCV 91.8, MCH 30.3, MCHC 33.0, RDW 14.9, Plt Count 212, MPV 6.1 L, Neut % (Auto) 77.2, Lymph % (Auto) 15.0, [place] % (Auto) 5.3, Eos % (Auto) 2.3, Baso % (Auto) 0.3, Neut # (Auto) 6.9, Lymph # (Auto) 1.3, [place] # (Auto) 0.5, Eos # (Auto) 0.2, Baso # (Auto) 0.0 08/04/18 06:43: Sodium 128 L, Potassium 3.8, Chloride 95 L, Carbon Dioxide 24, Anion Gap 12.8, BUN 12, Creatinine 0.79, Estimated Creat Clear 37, Estimated GFR 69, Est GFR ( Amer) 84, Glucose 91, Calcium 8.4 L I & O for Last 24 hours: Intake & Output 08/01/18 08/02/18 08/03/18 08/04/18 23:59 23:59 23:59 23:59 Intake Total 1132 / 1132 1098 / 1098 Output Total 775 / 775 1100 / 1100 Balance 357 / 357 -2 / -2 Weight 135 lb 9.985 oz 135 lb 9.985 oz 124 lb 15.998 oz 130 lb Microbiology Reports for the Last 24 Hours: Microbiology 08/01/18 21:48 Blood Blood Culture - Preliminary NO GROWTH AFTER 48 HOURS 08/01/18 21:48 Blood Blood Culture - Preliminary NO GROWTH AFTER 48 HOURS Assessment and Plan (1) History of atrial fibrillation Current visit: Yes Status: Acute Category: Medical Code(s): Z86.79 - Personal history of other diseases of the circulatory system (2) Acute delirium Current visit: Yes Status: Acute Category: Medical Code(s): R41.0 - Disorientation, unspecified (3) Hyponatremia Current visit: Yes Status: Acute Category: Medical Code(s): E87.1 - Hypo- osmolality and hyponatremia (4) HTN (hypertension) Current visit: No Status: Chronic Qualifiers: Hypertension type: unspecified Qualified Code(s): I10 - Essential (primary) hypertension Category: Medical Code(s): I10 - Essential (primary) hypertension (5) Multiple contusions Current visit: No Status: Acute Category: Medical Code(s): T07.XXXA - Unspecified multiple injuries, initial encounter (6) Polymyalgia rheumatica Current visit: Yes Status: Chronic Category: Medical Code(s): M35.3 - Polymyalgia rheumatica (7) Neuromuscular disease Current visit: Yes Status: Chronic Category: Medical Code(s): G70.9 - Myoneural disorder, unspecified (8) Left hip pain Current visit: Yes Status: Acute Category: Medical Code(s): M25.552 - Pain in left hip (9) Renal insufficiency Current visit: Yes Status: Acute Category: Medical Code(s): N28.9 - Disorder of kidney and ureter, unspecified - Assessment and plan all Dx Assessment and Plan for all problems:: Saw patient, agree with above note. She had a temp of 101.5 last night. She is alert but still confused at times. Possible transfer discussed with patient's daughter.
--- NOTE | 2018-08-04 11:47 | Progress Note ---
Internal Medicine - PN: Subj *Date: 08/04/18 *Time: 11:43 Interval history: Spoke to Dr. Tavares Garza and accepts patient in transfer to [facility] in [place]. Exam Vital signs and Labs for Last 24 Hours: Temp Pulse Resp BP Pulse Ox 97.5 F L 85 18 151/75 H 99 08/04/18 08:00 08/04/18 08:00 08/04/18 08:00 08/04/18 08:00 08/04/18 08:00 Laboratory Results - last 24 hr 08/04/18 06:43: WBC 8.9, RBC 4.09 L, Hgb 12.4, Hct 37.6, MCV 91.8, MCH 30.3, MCHC 33.0, RDW 14.9, Plt Count 212, MPV 6.1 L, Neut % (Auto) 77.2, Lymph % (Auto) 15.0, [place] % (Auto) 5.3, Eos % (Auto) 2.3, Baso % (Auto) 0.3, Neut # (Auto) 6.9, Lymph # (Auto) 1.3, [place] # (Auto) 0.5, Eos # (Auto) 0.2, Baso # (Auto) 0.0 08/04/18 06:43: Sodium 128 L, Potassium 3.8, Chloride 95 L, Carbon Dioxide 24, Anion Gap 12.8, BUN 12, Creatinine 0.79, Estimated Creat Clear 37, Estimated GFR 69, Est GFR ( Amer) 84, Glucose 91, Calcium 8.4 L I & O for Last 24 hours: Intake & Output 08/01/18 08/02/18 08/03/18 08/04/18 23:59 23:59 23:59 23:59 Intake Total 1132 / 1132 1098 / 1098 Output Total 775 / 775 1100 / 1100 Balance 357 / 357 -2 / -2 Weight 135 lb 9.985 oz 135 lb 9.985 oz 124 lb 15.998 oz 130 lb Microbiology Reports for the Last 24 Hours: Microbiology 08/01/18 21:48 Blood Blood Culture - Preliminary NO GROWTH AFTER 48 HOURS 08/01/18 21:48 Blood Blood Culture - Preliminary NO GROWTH AFTER 48 HOURS Assessment and Plan (1) Acute delirium Current visit: Yes Status: Acute Category: Medical Code(s): R41.0 - Disorientation, unspecified (2) Hyponatremia Current visit: Yes Status: Acute Category: Medical Code(s): E87.1 - Hypo- osmolality and hyponatremia (3) HTN (hypertension) Current visit: No Status: Chronic Qualifiers: Hypertension type: unspecified Qualified Code(s): I10 - Essential (primary) hypertension Category: Medical Code(s): I10 - Essential (primary) hypertension (4) Multiple contusions Current visit: No Status: Acute Category: Medical Code(s): T07.XXXA - Unspecified multiple injuries, initial encounter (5) Polymyalgia rheumatica Current visit: Yes Status: Chronic Category: Medical Code(s): M35.3 - Polymyalgia rheumatica (6) Neuromuscular disease Current visit: Yes Status: Chronic Category: Medical Code(s): G70.9 - Myoneural disorder, unspecified (7) Left hip pain Current visit: Yes Status: Acute Category: Medical Code(s): M25.552 - Pain in left hip (8) Renal insufficiency Current visit: Yes Status: Acute Category: Medical Code(s): N28.9 - Disorder of kidney and ureter, unspecified (9) Fever Current visit: Yes Status: Acute Category: Medical Code(s): R50.9 - Fever, unspecified (10) History of atrial fibrillation Current visit: Yes Status: Acute Category: Medical Code(s): Z86.79 - Personal history of other diseases of the circulatory system (11) CAD (coronary artery disease) Current visit: Yes Status: Acute Category: Medical Code(s): I25.10 - Atherosclerotic heart disease of [place] coronary artery without angina pectoris
--- NOTE | 2018-08-04 11:48 | Discharge Summary ---
General - General Admission date:: 08/02/18 Discharge date: 08/04/18 HPI HPI: Ms Taveras is an 87-year-old female with a history of coronary artery disease, atrial fibrillation, hypertension, hyperlipidemia, depression, GERD, COPD, polymyalgia rheumatica, weakness, impaired mobility and ADLs, neuromuscular disease, and confusion, who was brought to [facility] emergency room by family for evaluation. Family describes worsening m ental status over about the last week with severe weakness and emotional outbursts. Patient is unable to give any history. Information obtained from nursing records. Family has not noted a fever or any significant trauma, vomiting, or diarrhea. With evaluation in the emergency room patient was found to be very confused. [employer] were equal bilaterally with no drift and no facial droop noted. Patient did not follow normal conversation. She could not stand to get out of bed. Patient was found to be hyponatremic. Chest x-ray showed cardiomegaly. Urinalysis was negative. She was admitted for further evaluation and treatment for her acute delirium. Hospital Course Hospital Course: The patient's head CT showed nothing acute. There was some atrophy with chronic ischemic gliotic change. The patient made repetitive statements and counted continuously. She did allow an exam but she had some agitation and attempts at hitting. She calmed down when her daughter was present. Her daughter got her to eat breakfast and she was able to swallow without difficulty. Her daughter stated she was supposed to have an appointment with an orthopedic surgeon for possible aspiration of her left hip and further studies due to ongoing left hip pain and refusal to walk and stand at times. She had been seen by Dr. Angulo who made the referral to [place]. Apparently there was some lucency around 1 of the screws in her prosthetic and he wanted her to be seen by another specialist. The patient was started on normal saline at 75 an hour and some of her home medications were restarted. She slept very little and was yelling out. She was extremely confused. She was manic at times and was hearing and seeing things. Dr. Lopez ordered an EKG and cardiac enzymes and also gave the patient a small dose of Ativan. Her cardiac enzymes came back normal. Her sodium remained low. A sed rate was checked and was normal. The ativan did seem to ca lm the patient. She did run a fever throughout the night of 08/04/2018. Her daughter requested that she be transferred where she could be seen by a neurologist due to her altered mental status. Dr. Lopez discussed the patient's case with a physician at [place] and she will be transferred to [facility]. Objective Vital signs: Temp Pulse Resp BP Pulse Ox 97.5 F L 85 18 151/75 H 99 08/04/18 08:00 08/04/18 08:00 08/04/18 08:00 08/04/18 08:00 08/04/18 08:00 Narrative: - Constitutional no acute distress Comments: Moves around in the bed almost continuously. Pointing and counting continuously. Will answer questions occasionally with yes or no. Does cooperate with turning and does obey some commands. - *Routine HEENT Exam Head: Present: normocephalic, atraumatic Eye: Present: PERRL ENT: Present: mucous membranes moist, oropharynx clear - *Routine Neck Exam Present: supple. Absent: carotid bruit, lymphadenopathy, thyromegaly - *Routine Respiratory Exam Present: CTA bilaterally (Anteriorly and posteriorly) - *Routine Cardiovascular Exam Present: RRR (Monitor showing sinus rhythm in the 80s.) - *Routine Abdominal Exam Present: soft, normoactive bowel sounds. Absent: tenderness - *Routine Extremities Exam Present: pulses intact. Absent: edema, calf tenderness - *Routine Neurological Exam Present: alert, altered mental status, moving all extremities Disoriented and restless. Sometimes a little agitated. Results Labs on day of discharge: Labs from last 24 hours 08/04/18 08/04/18 06:43 06:43 WBC 8.9 RBC 4.09 L Hgb 12.4 Hct 37.6 MCV 91.8 MCH 30.3 MCHC 33.0 RDW 14.9 Plt Count 212 MPV 6.1 L Neut % (Auto) 77.2 Lymph % (Auto) 15.0 [place] % (Auto) 5.3 Eos % (Auto) 2.3 Baso % (Auto) 0.3 Neut # (Auto) 6.9 Lymph # (Auto) 1.3 [place] # (Auto) 0.5 Eos # (Auto) 0.2 Baso # (Auto) 0.0 Sodium 128 L Potassium 3.8 Chloride 95 L Carbon Dioxide 24 Anion Gap 12.8 BUN 12 Creatinine 0.79 Estimated Creat Clear 37 Estimated GFR 69 Est GFR ( Amer) 84 Glucose 91 Calcium 8.4 L Preliminary micro results at discharge 08/01/18 21:48 Blood Culture - Preliminary Blood NO GROWTH AFTER 48 HOURS 08/01/18 21:48 Blood Culture - Preliminary Blood NO GROWTH AFTER 48 HOURS DS: Diagnosis - Discharge Diagnosis (1) History of atrial fibrillation Status: Acute (2) Acute delirium Status: Acute (3) Hyponatremia Status: Acute (4) HTN (hypertension) Status: Chronic (5) Multiple contusions Status: Acute (6) Polymyalgia rheumatica Status: Chronic (7) Neuromuscular disease Status: Chronic (8) Left hip pain Status: Acute (9) Renal insufficiency Status: Acute (10) Fever Status: Acute Discharge Plan - Patient Discharge Instructions ACTIVITY: Continue current activity DIET: continue same diet Patient Instructions: Kidney Failure, Delirium, DI for Atrial Fibrillation, DI for Hyponatremia - Follow up Plan Follow up with: Carlos Lopez MD [Primary Care Provider] - Disposition: Xfer Short-Term Hosp Home Medications: Home Medications Medication Instructions Recorded Confirmed Type acetaminophen ER 650 mg 650 mg PO Q12H PRN 07/07/18 08/02/18 History tablet,extended release amlodipine 5 mg tablet 5 mg PO DAILY 07/07/18 08/02/18 History aspirin 81 mg tablet,delayed 81 mg PO DAILY 07/07/18 08/02/18 History release clopidogrel 75 mg tablet 75 mg PO DAILY 07/07/18 08/02/18 History fluoxetine 20 mg capsule 20 mg PO DAILY 07/07/18 08/02/18 History irbesartan 150 mg tablet 150 mg PO DAILY 07/07/18 08/02/18 History nebivolol 5 mg tablet 5 mg PO DAILY 07/07/18 08/02/18 History omeprazole 40 mg capsule,delayed 40 mg PO DAILY 07/07/18 08/02/18 History release rivaroxaban 15 mg tablet 15 mg PO QPM 07/07/18 08/02/18 History Levocetirizine Dihydrochloride 5 mg PO DAILYP PRN 08/02/18 08/02/18 History [Xyzal] Spironolactone 25 mg PO BID 08/02/18 08/02/18 History predniSONE [Prednisone 20mg 20 mg PO DAILY 08/02/18 08/02/18 History Tab] Prescriptions/Medication Reconciliation: Continued amlodipine 5 mg tablet 5 mg PO DAILY aspirin 81 mg tablet,delayed release 81 mg PO DAILY nebivolol 5 mg tablet 5 mg PO DAILY clopidogrel 75 mg tablet 75 mg PO DAILY irbesartan 150 mg tablet 150 mg PO DAILY omeprazole 40 mg capsule,delayed release 40 mg PO DAILY rivaroxaban 15 mg tablet 15 mg PO QPM fluoxetine 20 mg capsule 20 mg PO DAILY acetaminophen ER 650 mg tablet,extended release 650 mg PO Q12H PRN PRN Reason: unknown Spironolactone 25 mg PO BID Levocetirizine Dihydrochloride [Xyzal] 5 mg PO DAILYP PRN PRN Reason: ALLERGIES Discontinued predniSONE [Prednisone 20mg Tab] 20 mg PO DAILY
== END 2018-08-04 20:10 | disposition short-term general hospital (02) ==
LOC: ICU 21:26 → ER 21:26 → ICU 08-02 00:18
PROVIDERS: ADMIT Family Medicine; ATTEND Family Medicine
CPT/HCPCS: 36415; 70450; 71010; 71045; 80048; 80053; 80305; 81001; 82550; 82553; 83605; 83735; 84484; 85025; 85651; 86140; 87040; 93005; 96365; 96375; 99285; G0378

== ENCOUNTER 2018-09-11 11:10 | Observation (INO) ==
[2018-09-11 12:44] LABS: Basophils # 0.1 K/mm3 (0-0.2); Basophils % 0.5 % (0.1-2.0); Eosinophils # 0.2 K/mm3 (0.0-0.4); Eosinophils % 1.8 % (0.1-12.0); Hematocrit 35.5 % (37.0-47.0); Hemoglobin 11.2 g/dL (12.2-16.2); Lymphocytes % 26.7 % (10-50); Mean Corpuscular HGB Conc 31.7 g/dL (31.8-35.4); Mean Corpuscular Volume 87.5 fl (81-99); Mean Platelet Volume 6.5 fl (7.4-10.4); Monocytes # 0.9 K/mm3 (0.1-1.0); Platelet Count 317 K/mm3 (142-424); Red Blood Count 4.05 M/mm3 (4.20-5.40); Red Cell Distribution Width 14.4 % (11.5-17.5); White Blood Count 11.1 K/mm3 (4.8-10.8)
[2018-09-11 12:59] LABS: Anion Gap 14.9 mEq/L (5-15); Calcium 9.2 mg/dL (8.5-10.1)
[2018-09-11 13:44] LABS: Microscopic, Urine URINE MICROSCOPIC (MICROSCOPIC)
[2018-09-11 13:46] LABS: Appearance,Urine CLEAR (Clear); Bilirubin,Urine Negative (Negative); Blood, Urine Negative (Negative); Color,Urine YELLOW (Yellow); Glucose,Urine (UA) Negative (Negative); Ketones,Urine Negative (Negative); Leukocyte Esterase,Urine Negative (Negative); Protein,Urine Negative (Negative); Specific Gravity, Urine <= 1.005 (1.005-1.030); Urobilinogen,Urine 0.2 EU/dl (0.2)
[2018-09-11 14:03] LABS: Bacteria,Urine Trace /lpf; Squamous Epithelial Cell,Urine Occasional #/hpf (0-5); WBC,Urine Occasional #/hpf (0-3)
--- NOTE | 2018-09-11 15:46 | Emergency Department Note ---
ED Disposition Clinical Impression: Congestive heart failure Disposition: Admitted as Observation Condition on Discharge: Fair Referrals: Didi Boles MD [Primary Care Provider] - Time of Disposition: 16:09 - Critical Care Critical Care Time: No Attestation: On 09/11/18, the high probability of a clinically significant, sudden or life threatening deterioration of the following system(s) required my full and direct attention, intervention and personal management. The time I documented below is in addition to time spent performing reported procedures but includes the follo wing listed in this critical care notation. Medical Decision Making - Medical Records Medical records reviewed: Yes: I reviewed the patient's medical records. - Benny Inquiry Pt receiving controlled substance: No Benny was queried for this patient: No Vital Signs: 09/11/18 11:26 09/11/18 13:05 09/11/18 13:30 Temperature 98.9 F Temperature Source Oral Pulse Rate [Left Radial] 81 82 89 Respiratory Rate 18 18 Blood Pressure [Right Arm] 148/75 H 164/94 H 172/117 H Blood Pressure Mean [Right Arm] 99 117 135 Blood Pressure Source [Right Arm] Automatic Cuff Blood Pressure Position [Right Arm] Sitting Sitting 02 Sat by Pulse Oximetry 97 96 97 Oxygen Delivery Method Room Air Room Air 09/11/18 13:59 09/11/18 14:20 Temperature Temperature Source Pulse Rate [Left Radial] 82 78 Respiratory Rate Blood Pressure [Right Arm] 167/95 H 159/92 H Blood Pressure Mean [Right Arm] 119 114 Blood Pressure Source [Right Arm] Blood Pressure Position [Right Arm] 02 Sat by Pulse Oximetry Oxygen Delivery Method - Lab Data Lab results reviewed: Yes: I reviewed the patient's lab results. Lab Results 09/11/18 12:36: WBC 11.1 H, RBC 4.05 L, Hgb 11.2 L, Hct 35.5 L, MCV 87.5, MCH 27.7, MCHC 31.7 L, RDW 14.4, Plt Count 317, MPV 6.5 L, Neut % (Auto) 63.0, Lymph % (Auto) 26.7, [place] % (Auto) 8.0, Eos % (Auto) 1.8, Baso % (Auto) 0.5, Neut # (Auto) 7.0, Lymph # (Auto) 3.0, [place] # (Auto) 0.9, Eos # (Auto) 0.2, Baso # (Auto) 0.1 09/11/18 12:36: Sodium 139, Potassium 3.9, Chloride 103, Carbon Dioxide 25, Anion Gap 14.9, BUN 11, Creatinine 0.90, Estimated Creat Clear 37, Estimated GFR 60, Est GFR ( Amer) 72, Glucose 100, Calcium 9.2 09/11/18 12:36: B-Natriuretic Peptide 385 H 09/11/18 12:36: Lipase 205 09/11/18 13:41: Urine Color Yellow, Urine Appearance Clear, Urine pH 7.0, Ur Specific [place] <= 1.005, Urine Protein Negative, Urine Glucose (UA) Negative, Urine Ketones Negative, Urine Blood Negative, Urine Nitrate Negative, Urine Bilirubin Negative, Urine Urobilinogen 0.2, Ur Leukocyte Esterase Negative, Urine WBC Occasional, Ur Squamous Epith Cells Occasional, Urine Bacteria Trace Result diagrams: 09/11/18 12:36 09/11/18 12:36 General Adult HPI - General Chief complaint: Extremity Problem,Nontraumatic Stated complaint: retaining fluid complaining of smothering Time Seen by Provider: 09/11/18 15:42 Mode of Arrival: Ambulatory Source of Information: Patient, Relative Limitations: No Limitations Description of Symptoms (Recalled from ER Triage Doc. by RN): c/o feet swelling that started last week. Family states that she has been coughing and stating that she is "smothering". and a headache. Pt has Dementia. - Related Data Home Medications Medication Instructions Recorded Confirmed acetaminophen ER 650 mg 650 mg PO Q12H PRN 07/07/18 08/02/18 tablet,extended release amlodipine 5 mg tablet 5 mg PO DAILY 07/07/18 08/02/18 aspirin 81 mg tablet,delayed 81 mg PO DAILY 07/07/18 08/02/18 release clopidogrel 75 mg tablet 75 mg PO DAILY 07/07/18 08/02/18 fluoxetine 20 mg capsule 20 mg PO DAILY 07/07/18 08/02/18 irbesartan 150 mg tablet 150 mg PO DAILY 07/07/18 08/02/18 nebivolol 5 mg tablet 5 mg PO DAILY 07/07/18 08/02/18 omeprazole 40 mg capsule,delayed 40 mg PO DAILY 07/07/18 08/02/18 release rivaroxaban 15 mg tablet 15 mg PO QPM 07/07/18 08/02/18 Levocetirizine Dihydrochloride 5 mg PO DAILYP PRN 08/02/18 08/02/18 [Xyzal] Spironolactone 25 mg PO BID 08/02/18 08/02/18 Allergies Allergy/AdvReac Type Severity Reaction Status Date / Time diphenhydramine Allergy Unknown Verified 07/20/18 14:36 [From BENADRYL] morphine [MORPHINE] Allergy Unknown Verified 07/20/18 14:36 [facility] History - Hepatitis A Screen Drug use history?: No High risk sexual behaviors?: No History of sexually transmitted infection?: No Currently employed?: No Childcare worker?: No Do you have indoor plumbing?: Yes Do you have electricity?: Yes Attestation statement:: This patient has been screened for Hepatitis A risk factors. I have reviewed the patient's past medical history: Yes Medical History: Reports:: Atherosclerotic Heart Disease, Atrial Fibrillation, Congestive Heart Failure, Coronary Artery Disease, Gastroesophageal Reflux Dise ase(GERD), Hiatal Hernia, Hyperlipidemia, Hypertension, Palpitations Denies:: Cancer, Diabetes Mellitus Type 1, Diabetes Mellitus Type 2, MRSA Other Medical History: Reports: Arthritis, Cataracts (removed in 2016) Comment: Heart attack 2009. Laterality Cases: Left: Total Hip Replacement, Right: Breast Biopsy Other Surgeries: Yes: Cardiac Catheterization, Cardiac Surgery, Coronary Stent, Hernia Repair Amputation: No - Social History Smoking Status: Never smoker Alcohol Intake: never Occupational Status: retired Housing: house Household Members: children - Psychiatric History Expresses thoughts of harming self/others: None Suicide Plan Description: No Plan Family Hx:: Coronary Artery Disease, Diabetes ROS Obtained: Yes All systems reviewed & no additional complaints - Constitutional Constitutional: Denies fever(s), Reports lethargy - ENT Ears, Nose, Mouth, and Throat: Denies sinus pain, Denies throat swelling - Cardiovascular Cardiovascular: Denies chest pain, Denies chest pain at rest, Reports dyspnea, Reports dyspnea on exertion, Reports shortness of breath when lying down - Respiratory Respiratory: Yes system reviewed and no additional complaints, except as docu, Yes chest congestion, Yes dyspnea, Yes dyspnea on exertion - Musculoskeletal Musculoskeletal: Reports muscle aches - Integumentary/Breasts Skin/Breast: Reports skin pain, Reports skin swelling - Neurologic Neurologic: Denies behavioral changes, Denies dizziness - Hematologic/Lymphatic Henatologic/Lymphatic: Denies easy bleeding, Denies easy bruising Physical Exam - General General appearance: alert, in no apparent distress - Head Head exam: atraumatic, normocephalic, normal inspection - Eye Eye exam: Present: normal appearance, PERRL, EOMI - ENT ENT exam: Present: normal exam - Neck Neck exam: Present: normal inspection, full ROM, trachea midline. Absent: meningismus, lymphadenopathy - Respiratory Respiratory exam: Present: other (scattered rhonchi). Absent: normal lung sounds bilaterally - Cardiovascular Cardiovascular exam: Present: regular rate, normal rhythm. Absent: tachycardia, JVD - Abdominal Exam Abdominal exam: Present: soft, normal bowel sounds. Absent: distention, tenderness, guarding - Extremities Exam Extremities exam: Present: normal inspection, other (exception of mild peripheral edema) - Neurological Exam Neurological exam: Present: alert, oriented X3 - Psychiatric Psychiatric exam: Present: normal affect, normal mood - Skin Skin exam: Present: warm, dry, intact, normal color
[2018-09-12 06:27] LABS: Basophils # 0.1 K/mm3 (0-0.2); Basophils % 0.6 % (0.1-2.0); Eosinophils # 0.2 K/mm3 (0.0-0.4); Eosinophils % 1.9 % (0.1-12.0); Hematocrit 36.8 % (37.0-47.0); Hemoglobin 11.3 g/dL (12.2-16.2); Lymphocytes # 2.8 K/mm3 (0.7-4.5); Lymphocytes % 31.9 % (10-50); Mean Corpuscular HGB Conc 30.9 g/dL (31.8-35.4); Mean Corpuscular Volume 87.6 fl (81-99); Mean Platelet Volume 6.6 fl (7.4-10.4); Monocytes # 0.8 K/mm3 (0.1-1.0); Monocytes % 8.6 % (1.7-9.3); Platelet Count 290 K/mm3 (142-424); Red Cell Distribution Width 14.5 % (11.5-17.5); White Blood Count 8.8 K/mm3 (4.8-10.8)
[2018-09-12 06:54] LABS: Anion Gap 13.5 mEq/L (5-15); Calcium 8.9 mg/dL (8.5-10.1)
--- NOTE | 2018-09-12 07:28 | Pharmacy Consult Notes ---
[facility] Pharmacy VTE Monitoring - Patient Demographics Admission date: 09/11/18 Report Date: 09/12/18 Time: 07:28 Allergies/Adverse Reactions: Patient Allergies diphenhydramine [From BENADRYL] Allergy (Unknown, Verified 07/20/18 14:36) morphine [MORPHINE] Allergy (Unknown, Verified 07/20/18 14:36) fluoxetine Adverse Reaction (Unknown, Verified 09/11/18 18:02) prednisone Adverse Reaction (Unknown, Verified 09/11/18 18:02) Height: 1.52 m Weight: 58.684 kg Patient Problems: Current Active Problems (Updated 09/11/18 @ 16:10 by Rod Muhammad MD) Congestive heart failure (Acute) - VTE Risk Labs: VTE Related Lab Results Hgb 11.3 g/dL (12.2-16.2) L 09/12/18 05:50 Hct 36.8 % (37.0-47.0) L 09/12/18 05:50 Plt Count 290 K/mm3 (142-424) 09/12/18 05:50 BUN 10 mg/dL (7-18) 09/12/18 05:30 Creatinine 0.89 mg/dL (0.55-1.02) 09/12/18 05:30 Estimated Creat Clear 38 mL/min (50-200) 09/12/18 05:30 VTE Score: 3 VTE Risk Level: Low Risk - Prophylaxis VTE Prophylaxis Ordered?: Yes Types of VTE Prophylaxis: Pharmacological Pharmacologic Type: Other (XARELTO ORDERED) - VTE Diagnosis Confirmed Treatment or plan recommended: Continue Current Treatment
--- NOTE | 2018-09-12 09:52 | History & Physical Report ---
*Admission Date: 09/11/18 <Neha Rizvi 09/12/18 09:53> *Chief complaint: Altered mental status, shortness of breath, leg edema. <Neha Rizvi 09/12/18 09:53> *History of present illness: Ms. Taveras is an 87-year-old female with a history of dementia, chronic atrial fibrillation, hypertension, depression, GERD, COPD, recent CVAs x2 with behavioral changes, chronic left hip pain and coronary artery disease who was brought to [facility] emergency room for evaluation by her daughter who was concerned about leg edema and possible renal failure, and possibility of another stroke. The daughter is the primary source of information and relates that her mother has had a change in her mental status. She states she has good and bad days and has been eating irregularly. She is incontinent of urine. She also must be fed. In the emergency room with evaluation she related shortness of breath and had leg edema. She was admitted for further evaluation and treatment. <Neha Rizvi 09/12/18 14:49> [facility] History Medical History: Reports:: Atherosclerotic Heart Disease, Atrial Fibrillation, Congestive Heart Failure, Chronic Obstructive Pulmonary Disease (COPD), Coronary Artery Disease, Cerebrovascular Accident, Depression, Gastroesophageal Reflux Disease(GERD), Hiatal Hernia, Hyperlipidemia, Hypertension, Myocardial Infarction, Osteoporosis, Palpitations Denies:: Cancer, Diabetes Mellitus Type 1, Diabetes Mellitus Type 2, MRSA <Neha Rizvi 09/12/18 14:49> *Have you ever received a pneumonia vaccine?: Yes <Neha Rizvi 09/12/18 14:49> *Have you received a flu vaccine this season?: Yes <Neha Rizvi 09/12/18 09:53> Other Medical History: Reports: Arthritis, Cataracts (removed in 2016) <Neha Rizvi 09/12/18 14:49> Laterality Cases: Left: Total Hip Replacement, Right: Breast Biopsy, Bilateral: Cataract <Neha Rizvi 09/12/18 14:49> Other Surgeries: Yes: Cardiac Catheterization, Cardiac Surgery, Coronary Stent, Hernia Repair <Neah Rizvi 09/12/18 09:53> Amputation: No <Neha Rizvi 09/12/18 09:53> Fractures: Yes <Neha Rizvi 19 09:53> - *Social History Smoking Status: Never smoker <Neha Rizvi 09/12/18 09:53> Alcohol Intake: never <Neha Rizvi 09/12/18 09:53> *Occupational Status:: retired <Neha Rizvi 09/12/18 09:53> Housing: house <Neha Rizvi 09/12/18 09:53> Household Members: children <Neha Rizvi 09/12/18 09:53> *Travel in the last 8 weeks: None <Neha Rizvi 09/12/18 09:53> - Psychiatric History Expresses thoughts of harming self/others: None <Neha Rizvi 09/12/18 09 :53> Suicide Plan Description: No Plan <Neha Rizvi 09/12/18 09:53> Family Hx:: Cancer, Coronary Artery Disease, Diabetes, Hypertension, Stroke, Other (Leukemia, liver cirrhosis, COPD) <BelkysNeha 09/12/18 14:49> Review of Systems - Constitutional Reports body ache(s) <Katherine Rizvihy 09/12/18 14:49> - Eyes Comments: Has floaters <BelkysNeha 09/12/18 14:49> - ENT Denies ear pain, Denies sore throat <BelkysNeha 09/12/18 14:49> - *Cardiovascular Reports shortness of breath (With any activity), Reports leg swelling, Denies chest pain <RizviNeha 09/12/18 14:49> - *Respiratory Reports cough, Reports shortness of breath, Reports shortness of breath with activity <Katherine Rizvihy 09/12/18 14:49> - *Gastrointestinal Reports abdominal pain (Right and left lateral abdominal pain, intermittent), Reports constipation, Denies nausea, Denies vomiting <BelkysNeha 09/12/18 14:49> - *Genitourinary Reports urinary incontinence <BelkysNeha 09/12/18 14:49> - *Musculoskeletal Reports neck pain <RizviNeha 09/12/18 14:49> Comments: Cannot walk due to left hip pain <RizviNeha 09/12/18 14:49> - *Neurologic Denies behavioral changes, Denies dizziness <BelkysKatherineNeha - 09/12/18 09:53> Meds Home Medications Medication Instructions Recorded Confirmed Type clopidogrel 75 mg tablet 75 mg PO DAILY 07/07/18 09/11/18 History irbesartan 150 mg tablet 150 mg PO HS 07/07/18 09/12/18 History omeprazole 40 mg capsule,delayed 40 mg PO DAILY 07/07/18 09/11/18 History release rivaroxaban 15 mg tablet 15 mg PO QPMWM 07/07/18 09/12/18 History Carvedilol [Carvedilol 6.25mg Tab] 6.25 mg PO BID 09/11/18 09/12/18 History Donepezil HCl [Aricept 5mg 5 mg PO HS 09/11/18 09/12/18 History Tablet] OLANZapine [Zyprexa 5mg tablet] 5 mg PO HS 09/11/18 09/11/18 History Quetiapine Fumarate [Seroquel Xr] 50 mg PO HS 09/11/18 09/11/18 History Levocetirizine Dihydrochloride 5 mg PO PM 09/12/18 09/12/18 History [Xyzal] Lovastatin 40 mg PO HS 09/12/18 09/12/18 History Melatonin/Pyridoxine HCl (B6) 1 each PO HS 09/12/18 09/12/18 History [Melatonin 5 mg Tablet] Triamcinolone Acetonide [Nasacort] 2 spr NOSTRIL-B DAILYP PRN 09/12/18 09/12/18 History <Didi Boles - 09/12/18 15:38> Allergies Allergy/AdvReac Type Severity Reaction Status Date / Time diphenhydramine Allergy Unknown Verified 07/20/18 14:36 [From BENADRYL] morphine [MORPHINE] Allergy Unknown Verified 07/20/18 14:36 fluoxetine AdvReac Unknown Verified 09/11/18 18:02 prednisone AdvReac Unknown Verified 09/11/18 18:02 <Didi Boles - 09/12/18 15:38> Exam Vital signs and Labs for Last 24 Hours: Temp Pulse Resp BP Pulse Ox 98.4 F 77 18 128/76 96 09/12/18 08:00 09/12/18 08:00 09/12/18 08:00 09/12/18 08:00 09/12/18 08:00 Laboratory Results - last 24 hr 09/12/18 05:30: Sodium 140, Potassium 3.5, Chloride 106, Carbon Dioxide 24, Anion Gap 13.5, BUN 10, Creatinine 0.89, Estimated Creat Clear 38, Estimated GFR 60, Est GFR ( Amer) 73, Glucose 95, Calcium 8.9 09/12/18 05:50: WBC 8.8, RBC 4.20, Hgb 11.3 L, Hct 36.8 L, MCV 87.6, MCH 27.0, MCHC 30.9 L, RDW 14.5, Plt Count 290, MPV 6.6 L, Neut % (Auto) 57.0, Lymph % (Auto) 31.9, [place] % (Auto) 8.6, Eos % (Auto) 1.9, Baso % (Auto) 0.6, Neut # (Auto) 5.0, Lymph # (Auto) 2.8, [place] # (Auto) 0.8, Eos # (Auto) 0.2, Baso # (Auto) 0.1 <Didi Boles - 09/12/18 15:38> Temp Pulse Resp BP Pulse Ox 98.4 F 77 18 128/76 96 09/12/18 08:00 09/12/18 08:00 09/12/18 08:00 09/12/18 08:00 09/12/18 08:00 Laboratory Results - last 24 hr 09/11/18 12:36: WBC 11.1 H, RBC 4.05 L, Hgb 11.2 L, Hct 35.5 L, MCV 87.5, MCH 27.7, MCHC 31.7 L, RDW 14.4, Plt Count 317, MPV 6.5 L, Neut % (Auto) 63.0, Lymph % (Auto) 26.7, [place] % (Auto) 8.0, Eos % (Auto) 1.8, Baso % (Auto) 0.5, Neut # (Auto) 7.0, Lymph # (Auto) 3.0, [place] # (Auto) 0.9, Eos # (Auto) 0.2, Baso # (Auto) 0.1 09/11/18 12:36: Sodium 139, Potassium 3.9, Chloride 103, Carbon Dioxide 25, Anion Gap 14.9, BUN 11, Creatinine 0.90, Estimated Creat Clear 37, Estimated GFR 60, Est GFR ( Amer) 72, Glucose 100, Calcium 9.2 09/11/18 12:36: B-Natriuretic Peptide 385 H 09/11/18 12:36: Lipase 205 09/11/18 13:41: Urine Color Yellow, Urine Appearance Clear, Urine pH 7.0, Ur Specific [place] <= 1.005, Urine Protein Negative, Urine Glucose (UA) Negative, Urine Ketones Negative, Urine Blood Negative, Urine Nitrate Negative, Urine Bilirubin Negative, Urine Urobilinogen 0.2, Ur Leukocyte Esterase Negative, Urine WBC Occasional, Ur Squamous Epith Cells Occasional, Urine Bacteria Trace 09/12/18 05:30: Sodium 140, Potassium 3.5, Chloride 106, Carbon Dioxide 24, Anion Gap 13.5, BUN 10, Creatinine 0.89, Estimated Creat Clear 38, Estimated GFR 60, Est GFR ( Amer) 73, Glucose 95, Calcium 8.9 09/12/18 05:50: WBC 8.8, RBC 4.20, Hgb 11.3 L, Hct 36.8 L, MCV 87.6, MCH 27.0, MCHC 30.9 L, RDW 14.5, Plt Count 290, MPV 6.6 L, Neut % (Auto) 57.0, Lymph % (Auto) 31.9, [place] % (Auto) 8.6, Eos % (Auto) 1.9, Baso % (Auto) 0.6, Neut # (Auto) 5.0, Lymph # (Auto) 2.8, [place] # (Auto) 0.8, Eos # (Auto) 0.2, Baso # (Auto) 0.1 <Neha Rizvi - 09/12/18 09:53> I & O for Last 24 hours: Intake & Output 09/10/18 09/11/18 09/12/18 09/13/18 11:59 11:59 11:59 11:59 Intake Total 1101 / 1101 631 / 631 Balance 1101 / 1101 631 / 631 Weight 125 lb 129 lb 6 oz 129 lb 6 oz <Didi Boles - 09/12/18 15:38> Intake & Output 09/09/18 09/10/18 09/11/18 09/12/18 11:59 11:59 11:59 11:59 Intake Total 1101 / 1101 Balance 1101 / 1101 Weight 125 lb 129 lb 6 oz <Neha Rizvi 09/12/18 09:53> Radiology Reports for the Last 24 Hours: 09/11/2018 chest x-ray IMPRESSION: Mild cardiomegaly otherwise negative 09/11/2018 CT of the abdomen/pelvis IMPRESSION: 1. Slight increased soft tissue density in the region of the head of the pancreas. Cannot exclude small pancreatic lesion. Follow-up with IV and oral contrast per pancreatic protocol or MRI of the pancreas difficult to evaluate. 2. Mild prominence of the appendix nonspecific. No obvious stranding of the periappendiceal fat. Please correlate with clinical parameters. Repeat exam with IV and oral contrast may add more specificity if clinically warranted. 3. Constipation extensive diverticulosis of the descending and sigmoid colon. 4. Mild stranding of the perirectal and presacral fat. This is nonspecific and could be seen with proctitis. 5. Mild asymmetric thickening of the anterior bladder wall the right. This could be seen with neoplastic involvement or asymmetric inflammation/infection 09/11/2018 CT of the head IMPRESSION: No acute intracranial findings with no significant change <Neha Rizvi 09/12/18 14:49> - Constitutional no acute distress <Neha Rizvi 09/12/18 14:49> Comments: Sitting in bedside comfort care and appears very comfortable. Is cooperative and answers all questions readily. Poor recall. <Neha Rizvi 09/12/18 14:49> - *Routine HEENT Exam Head: Present: normocephalic, atraumatic <Neha Rizvi 09/12/18 14:49> Eye: Present: PERRL. Absent: conjunctival icterus, scleral injection <Neha Rizvi 09/12/18 14:49> ENT: Present: mucous membranes moist, oropharynx clear <Neha Rizvi 09/12/18 14:49> - *Routine Neck Exam Present: supple. Absent: carotid bruit, lymphadenopathy, thyromegaly <Neha Rizvi 09/12/18 14:49> - *Routine Respiratory Exam Present: CTA bilaterally (Anteriorly and posteriorly) <Neha Rizvi 09/12/18 14:49> - *Routine Cardiovascular Exam Present: tachycardia, irregular rhythm <Neha Rizvi 09/12/18 14:49> - *Routine Abdominal Exam Present: soft, normoactive bowel sounds. Absent: tenderness, guarding <Neha Rizvi 09/12/18 14:49> - *Routine Extremities Exam Absent: edema <Neha Rizvi 09/12/18 14:49> Comments: CANDICE holes on bilateral lower extremities <Neha Rizvi 09/12/18 14:49> - *Routine Neurological Exam Present: alert, moving all extremities, normal speech <Neha Rizvi 09/12/18 14:49> Assessment and Plan (1) Congestive heart failure Current visit: Yes Status: Acute Category: Medical Code(s): I50.9 - Heart failure, unspecified (2) A-fib Current visit: No Status: Acute Qualifiers: Atrial fibrillation type: chronic Qualified Code(s): I48.2 - Chronic atrial fibrillation Category: Medical Code(s): I48.91 - Unspecified atrial fibrillation (3) CAD (coronary artery disease) Current visit: No Status: Chronic Category: Medical Code(s): I25.10 - Atherosclerotic heart disease of [place] coronary artery without angina pectoris (4) Hip pain, left Current visit: No Status: Chronic Category: Medical Code(s): M25.552 - Pain in left hip (5) Dementia Current visit: Yes Status: Chronic Category: Medical Code(s): F03.90 - Unspecified dementia without behavioral disturbance (6) History of CVA (cerebrovascular accident) Current visit: Yes Status: Chronic Category: Medical Code(s): Z86.73 - Personal history of transient ischemic attack (TIA), and cerebral infarction without residual deficits (7) Behavior disorder Current visit: Yes Status: Chronic Category: Medical <Neha Rizvi 09/12/18 14:23> (1) Congestive heart failure Current visit: Yes Status: Acute Category: Medical Code(s): I50.9 - Heart failure, unspecified (2) A-fib Current visit: No Status: Acute Qualifiers: Atrial fibrillation type: chronic Qualified Code(s): I48.2 - Chronic atrial fibrillation Category: Medical Code(s): I48.91 - Unspecified atrial fibrillation (3) CAD (coronary artery disease) Current visit: No Status: Chronic Category: Medical Code(s): I25.10 - Atherosclerotic heart disease of [place] coronary artery without angina pectoris (4) Hip pain, left Current visit: No Status: Chronic Category: Medical Code(s): M25.552 - Pain in left hip (5) Dementia Current visit: Yes Status: Chronic Category: Medical Code(s): F03.90 - Unspecified dementia without behavioral disturbance (6) History of CVA (cerebrovascular accident) Current visit: Yes Status: Chronic Category: Medical Code(s): Z86.73 - Personal history of transient ischemic attack (TIA), and cerebral infarction without residual deficits (7) Behavior disorder Current visit: Yes Status: Chronic Category: Medical <Didi Boles - 09/12/18 15:38> - Assessment and plan all Dx Assessment and Plan for all problems:: obtain Echo and Hospice consult placed. 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 Her status is declining drastically in the past few months. She is also having chronic hip pain with possible abscess at this joint. However, she is high-risk patient for surgery given her recent stent placements. Patient's daughter is the POA. Patient's daughter mentions that patient is DNR and will opt to hospice at this time given her status. Possible dc with home hospice tomorrow. <Didi Boles - 09/12/18 15:38> We will place on telemetry. We will continue to monitor labs. Physical therapy and care management have been consulted. <Neha Rizvi - 09/12/18 14:49>
--- NOTE | 2018-09-12 21:32 | Cardiology Report ---
PROCEDURE: 2-D M-mode and color Doppler study INDICATIONS FOR THE TEST: Chest pain COPD Heart Murmur Tobacco Smoking Palpitations+ Fatigue Syncope Edema+ Hypertension+Diabetes Mellitus Rheumatic Fever SOB+CHAMBERS Obesity Hyperlipidemia+ Family History HD Additional History AMS, AFIB, CAD, DEMENTIA, STENT, CHF PATIENT INFORMATION HEIGHT: 60 WEIGHT:129 GENDER: Female B/P:128/76 2-D/M-MODE INTERPRETATION: 2-D MEASUREMENTS OBSERVED VALUES IN CMS Right Ventricular Dimension (RVDd) 2.5 Interventricular Septum (Thickness)(IVsd) 1.5 Left Ventricular Internal Dimensions(LVIDd) 4.4 Left Ventricular Posterior Wall (Thickness)(LVPWd) 1.1 Aortic Root 2.9 Aortic Cusp Separation 1.8 Left Atrial Dimensions (LAD) 5.2 2D 1. Technically very difficult study because of the patient's factor and poor acoustic windows 2. The left atrium is markedly enlarged, left ventricle is normal visually estimated ejection fraction 50% with no obvious regional wall motion abnormality, endocardial surfaces are very poorly visualized. 3. The right atrium and right ventricle are mildly enlarged with normal contractility. 4. The aortic valve is thickened and calcified, leaflet continue to display mobility. 5. The mitral and tricuspid valvular minimally thickened. 6. The pulmonic valve is poorly visualized. DOPPLER INTERROGATION: Doppler interrogation of the aortic, mitral and tricuspid valvular presence of mild mitral and tricuspid regurgitation, tricuspid regurgitation jet velocity is inadequate for calculation of the right ventricular systolic pressure, diastolic parameters are inconclusive. Inferior vena cava is not well visualized. CONCLUSION: 1. Markedly enlarged left atrium, normal left ventricular size, visually estimated ejection fraction 50% with no obvious regional wall motion abnormality, diastolic parameters are inconclusive. 2. Mild mitral and tricuspid regurgitation 3. No significant pericardial effusion noted.
--- NOTE | 2018-09-13 09:24 | Progress Note ---
<Neha Rizvi - Last Filed: 09/13/18 09:21> Internal Medicine - PN: Subj *Date: 09/13/18 *Time: 09:21 Exam Vital signs and Labs for Last 24 Hours: Temp Pulse Resp BP Pulse Ox 97.9 F 54 L 18 142/66 H 98 09/13/18 08:00 09/13/18 08:00 09/13/18 08:00 09/13/18 08:00 09/13/18 08:00 I & O for Last 24 hours: Intake & Output 09/10/18 09/11/18 09/12/18 09/13/18 11:59 11:59 11:59 11:59 Intake Total 1101 / 1101 1814 / 1814 Balance 1101 / 1101 181 / 1814 Weight 125 lb 129 lb 6 oz 128 lb 1 oz Radiology Reports for the Last 24 Hours: 09/12/2018 echocardiogram CONCLUSION: 1. Markedly enlarged left atrium, normal left ventricular size, visually estimated ejection fraction 50% with no obvious regional wall motion abnormality, diastolic parameters are inconclusive. 2. Mild mitral and tricuspid regurgitation 3. No significant pericardial effusion noted. - Constitutional no acute distress Comments: Awake and alert and comfortable. Daughter is assisting with all liquids. States she ate all of her breakfast and fed herself. She cannot remember yesterday. She denies chest pain and shortness of breath. - *Routine Respiratory Exam Present: CTA bilaterally (Anteriorly and posteriorly.) - *Routine Cardiovascular Exam Present: irregular rhythm (Monitor showing atrial fib with a controlled ventricular response in the 70s and 80s) - *Routine Abdominal Exam Present: soft, normoactive bowel sounds. Absent: tenderness - *Routine Extremities Exam Absent: edema, calf tenderness Comments: CANDICE bingham on - *Routine Neurological Exam Present: alert - Routine Psychiatric Exam Present: cooperative. Absent: agitated Comments: Most alert this a.m. Speech is good. She is very pleasant and laughs periodically. Conversant Assessment and Plan (1) Congestive heart failure Current visit: Yes Status: Acute Category: Medical Code(s): I50.9 - Heart failure, unspecified (2) A-fib Current visit: No Status: Acute Qualifiers: Atrial fibrillation type: chronic Qualified Code(s): I48.2 - Chronic atrial fibrillation Category: Medical Code(s): I48.91 - Unspecified atrial fibrillation (3) CAD (coronary artery disease) Current visit: No Status: Chronic Category: Medical Code(s): I25.10 - Atherosclerotic heart disease of [place] coronary artery without angina pectoris (4) Hip pain, left Current visit: No Status: Chronic Category: Medical Code(s): M25.552 - Pain in left hip (5) Dementia Current visit: Yes Status: Chronic Category: Medical Code(s): F03.90 - Unspecified dementia without behavioral disturbance (6) History of CVA (cerebrovascular accident) Current visit: Yes Status: Chronic Category: Medical Code(s): Z86.73 - Personal history of transient ischemic attack (TIA), and cerebral infarction without residual deficits (7) Behavior disorder Current visit: Yes Status: Chronic Category: Medical - Assessment and plan all Dx Assessment and Plan for all problems:: Daughter states that patient will probably go home today with hospice. She seems okay with this. <Didi Boles - Last Filed: 09/13/18 12:04> Internal Medicine - PN: Subj *Date: 09/13/18 *Time: 12:04 Interval history: Patient did well overnight and had no issues overnight. Her blood pressure was slightly elevated. She tolerated breakfast with no problems. Exam Vital signs and Labs for Last 24 Hours: Temp Pulse Resp BP Pulse Ox 97.9 F 54 L 18 142/66 H 98 09/13/18 08:00 09/13/18 08:00 09/13/18 08:00 09/13/18 08:00 09/13/18 08:00 I & O for Last 24 hours: Intake & Output 09/10/18 09/11/18 09/12/18 09/13/18 11:59 11:59 11:59 11:59 Intake Total 1101 / 1101 1814 / 1814 Balance 1101 / 1101 1814 / 1814 Weight 125 lb 129 lb 6 oz 128 lb 1 oz - *Routine HEENT Exam Head: Present: normocephalic Eye: Present: EOMI, PERRL ENT: Present: mucous membranes moist - *Routine Neck Exam Present: supple. Absent: lymphadenopathy - *Routine Respiratory Exam Present: CTA bilaterally - *Routine Cardiovascular Exam Present: RRR - *Routine Abdominal Exam Present: soft, normoactive bowel sounds. Absent: tenderness - *Routine Extremities Exam Absent: cyanosis, clubbing, edema - *Routine Neurological Exam Present: alert. Absent: oriented X3 Assessment and Plan (1) Congestive heart failure Current visit: Yes Status: Acute Category: Medical Code(s): I50.9 - Heart failure, unspecified (2) A-fib Current visit: No Status: Acute Qualifiers: Atrial fibrillation type: chronic Qualified Code(s): I48.2 - Chronic atrial fibrillation Category: Medical Code(s): I48.91 - Unspecified atrial fibrillation (3) CAD (coronary artery disease) Current visit: No Status: Chronic Category: Medical Code(s): I25.10 - A therosclerotic heart disease of [place] coronary artery without angina pectoris (4) Hip pain, left Current visit: No Status: Chronic Category: Medical Code(s): M25.552 - Pain in left hip (5) Dementia Current visit: Yes Status: Chronic Category: Medical Code(s): F03.90 - Unspecified dementia without behavioral disturbance (6) History of CVA (cerebrovascular accident) Current visit: Yes Status: Chronic Category: Medical Code(s): Z86.73 - Personal history of transient ischemic attack (TIA), and cerebral infarction without residual deficits (7) Behavior disorder Current visit: Yes Status: Chronic Category: Medical - Assessment and plan all Dx Assessment and Plan for all problems:: discharged home with hospice. No f/u needed as she is hospice. Advised to call if she needs something.
--- NOTE | 2018-09-13 22:28 | Discharge Summary ---
General - General Admission date:: 09/11/18 Discharge date: 09/13/18 HPI HPI: Ms. Taveras is an 87-year-old female with a history of dementia, chronic atrial fibrillation, hypertension, depression, GERD, COPD, recent CVAs x2 with behavioral changes, chronic left hip pain and coronary artery disease who was brought to [facility] emergency room for evaluation by her daughter who was concerned about leg edema and possible renal failure, and possibility of another stroke. The daughter is the primary source of information and relates that her mother has had a change in her mental status. She states she has good and bad days and has been eating irregularly. She is incontinent of urine. She also must be fed. In the emergency room with evaluation she related shortness of breath and had leg edema. She was admitted for further evaluation and treatment. Hospital Course Hospital Course: The patient had a chest x-ray showing mild cardiomegaly but was otherwise negative. She had a CT of the abdomen and pelvis which showed an increased soft tissue density in the region of the head of the pancreas. Radiology recommended follow-up with IV and oral contrast per pancreatic protocol or MRI of the pancreas. Constipation with extensive diverticulosis of the descending and sigmoid colon was also noted. There was mild stranding of the perirectal and presacral fat which can be seen with proctitis. There was also mild asymmetric thickening of the anterior bladder wall which can be seen with neoplastic involvement or asymmetric inflammation or infection. She had a head CT showing nothing acute. Her labs were relatively unremarkable other than a slightly elevated white blood cell count and BNP. She was placed on telemetry and physical therapy and care management were consulted. Dr. 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 She felt her status had declined drastically over the past few months. She was also having chronic hip pain with possible abscess at the joint, however she was a high risk patient for surgery given recent stent placements. The patient's daughter is her POA and wanted a hospice evaluation. An echo was ordered and a hospice consult was placed. Her echo showed a markedly enlarged left atrium and an EF of 50%. The patient was seen by hospice and was accepted. She was stable to be discharged home with hospice. Objective Vital signs: Temp Pulse Resp BP Pulse Ox 97.6 F 80 18 173/84 H 96 09/13/18 11:44 09/13/18 12:00 09/13/18 11:44 09/13/18 11:44 09/13/18 11:44 Narrative: - Constitutional no acute distress Comments: Sitting in bedside comfort care and appears very comfortable. Is cooperative and answers all questions readily. Poor recall. - *Routine HEENT Exam Head: Present: normocephalic, atraumatic Eye: Present: PERRL. Absent: conjunctival icterus, scleral injection ENT: Present: mucous membranes moist, oropharynx clear - *Routine Neck Exam Present: supple. Absent: carotid bruit, lymphadenopathy, thyromegaly - *Routine Respiratory Exam Present: CTA bilaterally (Anteriorly and posteriorly) - *Routine Cardiovascular Exam Present: tachycardia, irregular rhythm - *Routine Abdominal Exam Present: soft, normoactive bowel sounds. Absent: tenderness, guarding - *Routine Extremities Exam Absent: edema Comments: CANDICE holes on bilateral lower extremities - *Routine Neurological Exam Present: alert, moving all extremities, normal speech DS: Diagnosis - Discharge Diagnosis (1) Congestive heart failure Status: Acute (2) A-fib Status: Acute (3) CAD (coronary artery disease) Status: Chronic (4) Hip pain, left Status: Chronic (5) Dementia Status: Chronic (6) History of CVA (cerebrovascular accident) Status: Chronic (7) Behavior disorder Status: Chronic Discharge Plan - Patient Discharge Instructions ACTIVITY: Continue current activity DIET: continue same diet Patient Instructions: DI for Heart Failure, DI for Shortness of Breath - Follow up Plan Disposition: Hospice - Home Home Medications: Home Medications Medication Instructions Recorded Confirmed Type clopidogrel 75 mg tablet 75 mg PO DAILY 07/07/18 09/11/18 History irbesartan 150 mg tablet 150 mg PO HS 07/07/18 09/12/18 History omeprazole 40 mg capsule,delayed 40 mg PO DAILY 07/07/18 09/11/18 History release rivaroxaban 15 mg tablet 15 mg PO QPMWM 07/07/18 09/12/18 History Carvedilol [Carvedilol 6.25mg Tab] 6.25 mg PO BID 09/11/18 09/12/18 History Donepezil HCl [Aricept 5mg 5 mg PO HS 09/11/18 09/12/18 History Tablet] OLANZapine [Zyprexa 5mg tablet] 5 mg PO HS 09/11/18 09/11/18 History Quetiapine Fumarate [Seroquel Xr] 50 mg PO HS 09/11/18 09/11/18 History Levocetirizine Dihydrochloride 5 mg PO PM 09/12/18 09/12/18 History [Xyzal] Lovastatin 40 mg PO HS 09/12/18 09/12/18 History Melatonin/Pyridoxine HCl (B6) 1 each PO HS 09/12/18 09/12/18 History [Melatonin 5 mg Tablet] Triamcinolone Acetonide [Nasacort] 2 spr NOSTRIL-B DAILYP PRN 09/12/18 09/12/18 History Furosemide [Lasix 20mg tablet] 20 mg PO DAILY #30 tab 09/13/18 Rx Hydrocodone/Acetaminophen [[place] 1 each PO BID PRN #60 tab 09/13/18 Rx 5-325 Tablet] Spironolactone 25 mg PO DAILY #30 tab 09/13/18 Rx Prescriptions/Medication Reconciliation: New Furosemide [Lasix 20mg tablet] 20 mg PO DAILY #30 tab Hydrocodone/Acetaminophen [[place] 5-325 Tablet] 1 each PO BID PRN #60 tab PRN Reason: Severe Pain Spironolactone 25 mg PO DAILY #30 tab Continued clopidogrel 75 mg tablet 75 mg PO DAILY irbesartan 150 mg tablet 150 mg PO HS omeprazole 40 mg capsule,delayed release 40 mg PO DAILY rivaroxaban 15 mg tablet 15 mg PO QPMWM Quetiapine Fumarate [Seroquel Xr] 50 mg PO HS Donepezil HCl [Aricept 5mg Tablet] 5 mg PO HS Carvedilol [Carvedilol 6.25mg Tab] 6.25 mg PO BID Triamcinolone Acetonide [Nasacort] 2 spr NOSTRIL-B DAILYP PRN PRN Reason: ALLERGY SYMPTOMS Melatonin/Pyridoxine HCl (B6) [Melatonin 5 mg Tablet] 1 each PO HS Lovastatin 40 mg PO HS OLANZapine [Zyprexa 5mg tablet] 5 mg PO HS Levocetirizine Dihydrochloride [Xyzal] 5 mg PO PM
== END 2018-09-13 15:25 | disposition hospice, home (50) ==
LOC: ER 11:10 → 2ND 11:10
PROVIDERS: ADMIT Emergency Medicine; ATTEND Emergency Medicine
DX: Z88.8 Allergy status to other drugs, medicaments and biological substances; F03.91 Unspecified dementia, unspecified severity, with behavioral disturbance; K21.9 Gastro-esophageal reflux disease without esophagitis; I50.9 Heart failure, unspecified; K57.30 Diverticulosis of large intestine without perforation or abscess without bleeding; M25.552 Pain in left hip; R60.1 Generalized edema; I25.10 Atherosclerotic heart disease of native coronary artery without angina pectoris; E78.5 Hyperlipidemia, unspecified; I69.314 Frontal lobe and executive function deficit following cerebral infarction; Z88.6 Allergy status to analgesic agent; Z79.899 Other long term (current) drug therapy; I48.2 Chronic atrial fibrillation; I11.0 Hypertensive heart disease with heart failure; Z79.82 Long term (current) use of aspirin; K59.00 Constipation, unspecified
CPT/HCPCS: 36415; 70450; 71010; 71045; 74176; 80048; 81001; 83690; 83880; 85025; 93306; 97162; 99282; G0378